=== PATIENT | male | born 1935 | race Caucasian/White ===

== ENCOUNTER 2018-05-29 07:56 | Outpatient (CLI) | payer MEDICARE, OTHER ==
--- NOTE | 2018-05-29 10:30 | ULT ---
BILATERAL RENAL ULTRASOUND: HISTORY: Polycystic kidney disease. FINDINGS: Comparison is made with the exam of 10/02/2016. The right kidney measures 10.6 cm in length and the left kidney measures 11.8 cm in length. No hydro nephrosis is seen on either side. Multiple bilateral renal cysts are seen. The largest of these in the right kidney measures 5.3 cm and is in the right mid pole. The largest cyst in the left kidney i s in the superior pole measuring 5 cm. The urinary bladder is well distended with a prevoid volume of 408 cc and a postvoid residual of 390 cc. IMPRESSION: 1. Bilateral renal cysts. 2. Large amount of postvoid residual in the urinary bladder. POS: [facility]
== END 2018-05-29 07:57 | disposition home or self-care (01) ==
LOC: BICULT 07:56
PROVIDERS: ATTEND Urology
DX: Q61.3 Polycystic kidney, unspecified (principal); N40.1 Benign prostatic hyperplasia with lower urinary tract symptoms; R33.9 Retention of urine, unspecified; N28.1 Cyst of kidney, acquired; R39.198 Other difficulties with micturition
CPT/HCPCS: 36415; 76770; 80048

== ENCOUNTER 2018-11-23 13:29 | Outpatient (CLI) | payer MEDICARE, OTHER ==
--- NOTE | 2018-11-23 14:44 | RAD ---
EXAM: Single view of the lower abdomen HISTORY: Filling of incomplete bladder emptying COMPARISON: None FINDINGS: Single view of the abdomen shows a nonspecific, nonobstructive bowel gas pattern. No suspi cious calcifications are seen. Degenerative changes and hardware seen in the lumbar spine. IMPRESSION: No significant pelvic/lower abdominal abnormality
--- NOTE | 2018-11-23 15:32 | ULT ---
Bilateral renal ultrasound CLINICAL INDICATION: Incomplete urinary bladder empty COMPARISON: 09/27/2017 FINDINGS: Right kidney: Superior pole exophytic anechoic lesions are seen largest measuring 4.4 cm which demons trates sonographic characteristics most compatible with cysts. No renal calculus or hydronephrosis is present. The right kidney measures 12 cm x 5.1 cm. Left kidney: Anechoic exophytic cystic structures are seen involving the left kidney largest in the l ateral aspect superior pole left kidney measuring 4.6 cm. No renal calculus or hydronephrosis is present.The left kidney measures 10.8 cm x 5.9 cm. Urinary bladder: Normal in appearance with urinary bladder volume of 470 mL. Patient attempted to voi d but was unable to void. The prostate gland is mildly enlarged measuring 6.4 cm in transverse dimensions. IMPRESSION: 1. Distention of the urinary bladder with prevoid urinary bladder volume calculated at 450 mL. Patien t attempted to void but was unable to void, and the post void urinary bladder volume is 470 mL. 2. Bilateral renal cysts. 3. No evidence of hydronephrosis. 4. Enlargement of prostate gland.
== END 2018-11-23 13:30 | disposition home or self-care (01) ==
LOC: RAD 13:29
PROVIDERS: ATTEND Urology
DX: N40.1 Benign prostatic hyperplasia with lower urinary tract symptoms (principal); R39.14 Feeling of incomplete bladder emptying; Q61.3 Polycystic kidney, unspecified; R35.0 Frequency of micturition; R35.1 Nocturia
CPT/HCPCS: 74018; 76770

== ENCOUNTER 2019-01-11 08:05 | Day surgery (SDC) | payer MEDICARE, OTHER ==
[2019-01-11 08:26] LABS: #Basophils 0.1 thou/uL (0.0-0.2); #Eosinphils 0.1 thou/uL (0.0-0.7); #Lymphocytes 1.7 thou/uL (1.20-3.40); #Monocytes 0.6 thou/uL (0.11-0.59); #Neutrophils 4.1 thou/uL (1.40-6.50); %Basophils 0.8 % (0.0-1.0); %Eosinophils 0.9 % (0.0-10.0); %Lymphocytes 25.8 % (21.0-51.0); %Neutrophils 63.4 % (42.0-75.0); Hemoglobin 15.1 g/dL (14.0-18.0); Mean Corpuscular HGB CONC 34.4 g/dL (32.0-36.0); Mean Corpuscular Hemoglobin 33.2 pg (27.0-31.0); Mean Corpuscular Volume 96.5 fL (78.0-98.0); Mean Platelet Volume 7.3 fL (7.4-10.4); Platelet Count 196 thou/uL (130-400); RBC Distribution Width 11.8 % (11.5-14.5); Red Blood Cell (RBC) Count 4.55 mill/uL (4.70-6.10); White Blood Cell (WBC) Count 6.5 thou/uL (4.8-10.8)
[2019-01-11 08:30] LABS: Prothrombin Time 13.2 SEC (12.0-14.7)
[2019-01-11 08:31] LABS: PTT 28.1 SEC (22.9-36.1)
[2019-01-11 10:09] VITALS: BP 140/86; TEMP 98
[2019-01-11 10:21] VITALS: BMI 26.4
--- NOTE | 2019-01-11 13:52 | CT ---
EXAM: CT Supra Pubic Catheter Plcmt PROVIDED CLINICAL HISTORY: Urinary retention. COMPARISON: None TECHNIQUE: The procedure including the risks and complications were explained to the patient, and informed conse nt was obtained. Patient was placed on the CT scan table in the supine position. Limited noncontrasted CT scan was obtained through the pelvis with grid localizer in place. An area overlying the distended urinary bladder was marked, and the area was meticulously prepped and draped in usual sterile fashion. The skin and subcutaneous tissues were infiltrated with buffered 1% lidocaine for local anesthesia. A small skin incision was made. A 14 [place] suprapubic catheter with inner stiff cannula and trocar were advanced into the urinary bladder. The stylette and trocar were removed and the catheter was adv anced. There was a return of clear urine. The distal balloon was filled with 10 mL of sterile water. The catheter was placed to gravity drainage. The suprapubic catheter was sutured in place utilizing 2-0 Ethilon suture material. A dry sterile lizandro ssing was placed. The patient tolerated the procedure well and without immediate complication. The patient was transpor kaur to radiology nurses holding area for further monitoring prior to discharge. IMPRESSION: 1. Technically successful CT-guided suprapubic catheter placement. 2. Enlarged heterogeneous prostate gland with distention of the urinary bladder.
== END 2019-01-11 12:30 | disposition home or self-care (01) ==
LOC: CT 08:05
PROVIDERS: ATTEND Urology
DX: N40.1 Benign prostatic hyperplasia with lower urinary tract symptoms (principal); R33.8 Other retention of urine; R39.14 Feeling of incomplete bladder emptying; N28.9 Disorder of kidney and ureter, unspecified; I10 Essential (primary) hypertension; I25.10 Atherosclerotic heart disease of native coronary artery without angina pectoris; E11.9 Type 2 diabetes mellitus without complications; E78.5 Hyperlipidemia, unspecified; Q61.2 Polycystic kidney, adult type; Z79.82 Long term (current) use of aspirin; Z79.899 Other long term (current) drug therapy; Z88.8 Allergy status to other drugs, medicaments and biological substances; Z91.040 Latex allergy status; Z95.1 Presence of aortocoronary bypass graft
CPT/HCPCS: 51102; 77002; 85025; 85610; 85730; C2627; 36415

== ENCOUNTER 2019-12-14 09:48 | Outpatient (CLI) | payer MEDICARE, OTHER ==
--- NOTE | 2019-12-14 10:38 | RAD ---
KUB: Date: 12/14/2019 HISTORY: Polycystic kidney. FINDINGS: The bowel gas pattern appears nonobstructive. No radiopaque calculi seen. Postop cholecystectomy cardoso ges and postop changes of the spine are noted. A suprapubic catheter appears to be in place. IMPRESSION: No acute findings. POS: [facility]
--- NOTE | 2019-12-14 11:26 | ULT ---
US Renal Bilateral STANDARD History: Polycystic kidneys. Incomplete emptying of urinary bladder. Comparison: Renal ultrasound October 2018 Findings: Real-time grayscale and color evaluation of the kidneys and urinary bladder was performed. Right kidney measures 10.4 x 5.8 x 4.7 cm the left kidney measures 10.3 x 7.4 x 5.3 cm. The urinary b ladder is decompressed with suprapubic catheter. There are 3 cysts superior pole right kidney, largest measuring up to 5.5 cm. Left kidney also has fu ll of 3 exophytic cysts, largest measuring up to 5.5 cm. No renal mass or hydronephrosis. Impression: 1. Large bilateral renal cysts without hydronephrosis. 2. Decompressed urinary bladder with suprapubic catheter.
== END 2019-12-14 09:49 | disposition home or self-care (01) ==
LOC: BICULT 09:48
PROVIDERS: ATTEND Urology
DX: N40.1 Benign prostatic hyperplasia with lower urinary tract symptoms (principal); R39.14 Feeling of incomplete bladder emptying; Q61.3 Polycystic kidney, unspecified
CPT/HCPCS: 74018; 76770

== ENCOUNTER 2021-01-24 15:20 | Outpatient (CLI) | payer MEDICARE, OTHER | END 2021-01-24 15:21 | disposition home or self-care (01) | LOC: BICULT 15:20 | PROVIDERS: ATTEND Urology | DX: Q61.3 Polycystic kidney, unspecified (principal); N40.1 Benign prostatic hyperplasia with lower urinary tract symptoms; R39.14 Feeling of incomplete bladder emptying; E11.9 Type 2 diabetes mellitus without complications; N28.1 Cyst of kidney, acquired | CPT/HCPCS: 76770 ==

== ENCOUNTER 2021-03-19 14:57 | Inpatient (IN) | payer MEDICARE, OTHER ==
[~2021-03-19 14:57] MED LIST: Iopamidol 370 76% 100 ML VIAL ONE; Iopamidol 370 76% 50 ML VIAL FS ONE
[2021-03-19] MEDS ORDERED: Heparin 10,000 UNITS/ 10 ML VIAL ONE (15:10)
[2021-03-19] MEDS ORDERED: EPINEPHrine 1 MG/10 ML Abboject SYRINGE ONE (15:10)
[2021-03-19] MEDS ORDERED: Rocuronium Bromide 10 MG/ML (10ML VIAL) ONE (15:10)
[2021-03-19] MEDS ORDERED: Midazolam HCl 2 mg/2 ml Vial ONE (15:10)
[2021-03-19] MEDS ORDERED: methylPREDNISolone Sod Succ/PF 125 MG/2 ML VIAL ONE (15:11)
[2021-03-19] MEDS ORDERED: Famotidine/PF 20 mg/2ml Vial ONE (15:11)
[2021-03-19] MEDS ORDERED: diphenhydrAMINE 50 MG/ML VIAL ONE (15:11)
[2021-03-19] MEDS ORDERED: Midazolam HCl 5 mg/ml Vial ONE (15:30)
[2021-03-19] MEDS ORDERED: Propofol 1,000 MG/100 ML VIAL IV ONE (18:12)
[2021-03-19] MEDS ORDERED: TICAGRELOR 90 MG TABLET PO SCH (19:00)
[2021-03-19] MEDS ORDERED: Aggrastat 12.5 MG/250 ML 250 ML IVPB SCH (19:00)
[2021-03-19] MEDS ORDERED: Propofol BOLUS 1,000 MG/100 ML VIAL IV PRN (19:30)
[2021-03-19] MEDS ORDERED: Morphine 4 MG/ML VIAL SLOW IVP PRN (19:30)
[2021-03-19] MEDS ORDERED: fentaNYL Citrate/PF 2,000 MCG in Sodium Chloride 0.9% 60 ML IV SCH (19:30)
[2021-03-19] MEDS ORDERED: Propofol 1,000 MG/100 ML VIAL IV PRN (19:30)
[2021-03-19] MEDS ORDERED: Fentanyl BOLUS 250 ML IVPB PRN (19:30)
[2021-03-19] MEDS ORDERED: DISCONTINUE PREVIOUS NARCOTIC PAIN MEDICATIONS AND BENZODIAZEPINES FS SCH (19:30)
[2021-03-19] MEDS ORDERED: Morphine 2 MG/ML VIAL SLOW IVP PRN (19:30)
[2021-03-19] MEDS ORDERED: Lorazepam 2 MG/ML VIAL SLOW IVP PRN (19:30)
[2021-03-19 19:58] LABS: Actual Bicarbonate (HCO3a) 16.6 mEq/L (22-28); Base Excess (BEa) -7.9 mEq/L (-2.0 to +3.0); CO2 Tension 31.1 mmHg (35.0-45.0); Calcium, Ionized (arterial) 1.22 mmol/L (1.12-1.30); Carboxyhemoglobin (COHb) 0.4 gm% (0.0-3.0); Hemoglobin (Hb) 13.7 g/dL (14.0-18.0); O2 Tension (PaO2), arterial 108.6 mmHg (> 60.0); Potassium - ABG Lab 4.47 mmol/L (3.70-5.30); pH, Arterial 7.34 (7.35-7.45)
[2021-03-19 19:59] LABS: Puncture Site Arterial Line
[2021-03-19 20:00] LABS: ALV-art Gradient 137.725 mmHg (0-20)
[2021-03-19] MEDS: Heparin 25,000 units/D5W 500 ML IV SCH (21:06)
[2021-03-19] MEDS: Sodium Chloride 0.9% 1,000 ML IV SCH (21:06)
[2021-03-19 22:03] LABS: #Lymphocytes 0.5 thou/uL (1.20-3.40); #Monocytes 0.3 thou/uL (0.11-0.59); #Neutrophils 9.4 thou/uL (1.40-6.50); %Basophils 0.1 % (0.0-1.0); %Eosinophils 0.1 % (0.0-10.0); %Monocytes 3.2 % (0.0-10.0); %Neutrophils 91.5 % (42.0-75.0); Mean Corpuscular HGB CONC 34.5 g/dL (32.0-36.0); Mean Corpuscular Hemoglobin 33.7 pg (27.0-31.0); Mean Corpuscular Volume 97.6 fL (78.0-98.0); Mean Platelet Volume 8.2 fL (7.4-10.4); Platelet Count 156 thou/uL (130-400); RBC Distribution Width 11.8 % (11.5-14.5); Red Blood Cell (RBC) Count 3.86 mill/uL (4.70-6.10); White Blood Cell (WBC) Count 10.3 thou/uL (4.8-10.8)
[2021-03-19 22:22] LABS: ALT (SGPT) 119 U/L (8-55); AST (SGOT) 201 U/L (5-34); Albumin 3.6 g/dL (3.4-4.8); Alkaline Phosphatase 112 U/L (40-110); Anion Gap 16 mmol/L (10-20); BUN (Urea Nitrogen) 17 mg/dL (8.4-25.7); Bilirubin, Total 0.8 mg/dL (0.2-1.2); Calc. Creatinine Clearance 65 mL/min (70-130); Calcium 9.3 mg/dL (7.8-10.44); Carbon Dioxide 17 mmol/L (23-31); Chloride 107 mmol/L (98-107); Globulin 2.4 g/dL (2.4-3.5); Glucose 215 mg/dL (83-110); Potassium 4.6 mmol/L (3.5-5.1); Sodium 135 mmol/L (136-145)
[2021-03-19 22:34] LABS: PTT Greater than 250.0 sec (22.9-36.1)
[2021-03-19 23:00] LABS: SARS-CoV-2 NAA Rapid Test Not Detected (NotDetected)
[2021-03-20] MEDS: Heparin 25,000 units/D5W 500 ML IV SCH (02:12)
[2021-03-20] MEDS: Sodium Chloride 0.9% 1,000 ML IV SCH ×2 (03:28→20:50)
[2021-03-20 04:20] LABS: #Lymphocytes 0.8 thou/uL (1.20-3.40); #Monocytes 0.9 thou/uL (0.11-0.59); #Neutrophils 9.6 thou/uL (1.40-6.50); %Eosinophils 0.1 % (0.0-10.0); %Lymphocytes 6.9 % (21.0-51.0); %Monocytes 7.8 % (0.0-10.0); %Neutrophils 85.3 % (42.0-75.0); Hemoglobin 12.1 g/dL (14.0-18.0); Mean Corpuscular HGB CONC 34.9 g/dL (32.0-36.0); Mean Corpuscular Hemoglobin 34.3 pg (27.0-31.0); Mean Corpuscular Volume 98.3 fL (78.0-98.0); Mean Platelet Volume 8.2 fL (7.4-10.4); Platelet Count 140 thou/uL (130-400); Red Blood Cell (RBC) Count 3.53 mill/uL (4.70-6.10); White Blood Cell (WBC) Count 11.2 thou/uL (4.8-10.8)
[2021-03-20 04:54] LABS: Albumin 3.6 g/dL (3.4-4.8)
[2021-03-20 04:56] LABS: Calcium 8.8 mg/dL (7.8-10.44); Chloride 107 mmol/L (98-107); Potassium 4.5 mmol/L (3.5-5.1); Sodium 134 mmol/L (136-145)
[2021-03-20 04:57] LABS: Globulin 2.2 g/dL (2.4-3.5); Glucose 195 mg/dL (83-110); Protein, Total 5.8 g/dL (5.8-8.1)
[2021-03-20 04:59] LABS: Anion Gap 15 mmol/L (10-20); Bilirubin, Total 0.6 mg/dL (0.2-1.2); Carbon Dioxide 17 mmol/L (23-31)
[2021-03-20 05:00] LABS: Alkaline Phosphatase 104 U/L (40-110)
[2021-03-20 05:01] LABS: BUN (Urea Nitrogen) 19 mg/dL (8.4-25.7); Calc. Creatinine Clearance 63 mL/min (70-130)
[2021-03-20 05:02] LABS: AST (SGOT) 262 U/L (5-34)
[2021-03-20 05:03] LABS: ALT (SGPT) 116 U/L (8-55)
[2021-03-20 07:50] LABS: Actual Bicarbonate (HCO3a) 19.4 mEq/L (22-28); Base Excess (BEa) -3.6 mEq/L (-2.0 to +3.0); CO2 Tension 28.9 mmHg (35.0-45.0); Carboxyhemoglobin (COHb) 0.4 gm% (0.0-3.0); Hemoglobin (Hb) 12.2 g/dL (14.0-18.0); O2 Tension (PaO2), arterial 165.9 mmHg (> 60.0); Potassium - ABG Lab 4.39 mmol/L (3.70-5.30); pH, Arterial 7.44 (7.35-7.45)
[2021-03-20 08:10] LABS: ALV-art Gradient 83.175 mmHg (0-20); Puncture Site Arterial Line
[2021-03-20 08:45] LABS: PTT 132.3 sec (22.9-36.1)
[2021-03-20] MEDS ORDERED: FLU VACC QS2021-22(65YR UP)/PF 240 MCG/0.7 ML SYRINGE IM ONE (09:00)
[2021-03-20] MEDS: TICAGRELOR 90 MG TABLET PO SCH ×2 (09:00→20:49)
[2021-03-20] MEDS: Aspirin Chewable 81 MG TAB PO SCH ×2 (09:00→10:08)
[2021-03-20] MEDS ORDERED: Trospium 20 MG TAB PER TUBE SCH (09:45)
[2021-03-20] MEDS: Trospium 20 MG TAB PER TUBE SCH ×2 (10:13→20:50)
[2021-03-20 10:24] LABS: Troponin I 124.121 ng/mL (< 0.028)
[2021-03-20] MEDS ORDERED: DC Sedation Protocol FS ONE (13:45)
[2021-03-20] MEDS: Heparin 10,000 UNITS/ 10 ML VIAL SLOW IVP SCH (19:58)
[2021-03-20] MEDS: Atorvastatin Calcium 40 MG TAB PER TUBE SCH (20:50)
[2021-03-21] MEDS: Trospium 20 MG TAB PER TUBE SCH ×2 (09:58→20:05)
[2021-03-21] MEDS: Heparin 25,000 units/D5W 500 ML IV SCH (09:59)
[2021-03-21] MEDS: TICAGRELOR 90 MG TABLET PO SCH ×2 (09:59→20:05)
[2021-03-21] MEDS: Sodium Chloride 0.9% 1,000 ML IV SCH ×2 (10:18→17:24)
[2021-03-21 10:44] LABS: INR-International Normal Ratio 1.2
[2021-03-21 10:46] LABS: PTT 83.9 sec (22.9-36.1)
[2021-03-21] MEDS ORDERED: Morphine 4 MG/ML VIAL ONE (16:24)
[2021-03-21] MEDS ORDERED: Morphine 4 MG/ML VIAL SLOW IVP SCH (17:00)
[2021-03-21] MEDS: Atorvastatin Calcium 40 MG TAB PER TUBE SCH (20:05)
[2021-03-21] MEDS ORDERED: Zolpidem Tartrate 5 MG TAB PO PRN (22:23)
[2021-03-22 04:14] LABS: Anion Gap 15 mmol/L (10-20); BUN (Urea Nitrogen) 25 mg/dL (8.4-25.7); Calc. Creatinine Clearance 68 mL/min (70-130); Calcium 8.5 mg/dL (7.8-10.44); Carbon Dioxide 18 mmol/L (23-31); Chloride 108 mmol/L (98-107); Glucose 193 mg/dL (83-110); Mean Corpuscular HGB CONC 34.7 g/dL (32.0-36.0); Mean Corpuscular Hemoglobin 34.3 pg (27.0-31.0); Mean Corpuscular Volume 98.8 fL (78.0-98.0); Mean Platelet Volume 9.1 fL (7.4-10.4); Platelet Count 127 thou/uL (130-400); RBC Distribution Width 11.9 % (11.5-14.5); Sodium 137 mmol/L (136-145); White Blood Cell (WBC) Count 12.9 thou/uL (4.8-10.8)
[2021-03-22] MEDS: Heparin 10,000 UNITS/ 10 ML VIAL SLOW IVP SCH (06:12)
[2021-03-22] MEDS ORDERED: Ondansetron PF 4 MG/2 ML Vial IVP PRN (08:14)
[2021-03-22] MEDS ORDERED: Dextrose 50% Abboject 50 ML SYRINGE IVP PRN (08:15)
[2021-03-22] MEDS ORDERED: Ondansetron PF 4 MG/2 ML Vial IVP SCH (08:15)
[2021-03-22] MEDS ORDERED: Dextrose 5% in Water 1,000 ML IV PRN (08:15)
[2021-03-22] MEDS ORDERED: Alogliptin 6.25 MG TAB PO SCH (09:00)
[2021-03-22] MEDS: Trospium 20 MG TAB PER TUBE SCH ×2 (09:26→20:37)
[2021-03-22] MEDS: TICAGRELOR 90 MG TABLET PO SCH ×2 (09:28→20:36)
[2021-03-22] MEDS: Aspirin Chewable 81 MG TAB PO SCH (09:29)
[2021-03-22] MEDS: Milk Of Magnesia 30 ML UDCUP PO SCH (09:29)
[2021-03-22] MEDS: Docusate 100 MG CAP PO SCH ×2 (09:31→20:37)
[2021-03-22] MEDS: Enalaprilat Dihydrate 1.25 MG/ML VIAL SLOW IVP PRN (09:42)
[2021-03-22] MEDS: Sodium Chloride 0.9% 1,000 ML IV SCH (09:56)
[2021-03-22] MEDS: Insulin Regular 300 UNITS/3 ML VIAL SC PRN ×3 (11:14→20:36)
[2021-03-22] MEDS: Heparin 25,000 units/D5W 500 ML IV SCH (13:05)
[2021-03-22] MEDS ORDERED: Amiodarone 450 MG in Dextrose 5% in Water 250 ML IVPB SCH (17:15)
[2021-03-22] MEDS ORDERED: Cepastat Lozenges 1 LOZ PO PRN (17:56)
[2021-03-22] MEDS: Amiodarone 450 MG in Dextrose 5% in Water 250 ML IVPB SCH (18:13)
[2021-03-22] MEDS: Enoxaparin Sodium 80 MG/0.8 ML SYRINGE SC SCH (20:35)
[2021-03-22] MEDS: Atorvastatin Calcium 40 MG TAB PER TUBE SCH (20:37)
[2021-03-23] MEDS ORDERED: Morphine 4 MG/ML VIAL SLOW IVP SCH (06:30)
[2021-03-23 09:32] LABS: Hemoglobin 11.2 g/dL (14.0-18.0); Mean Corpuscular HGB CONC 32.3 g/dL (32.0-36.0); Mean Platelet Volume 9.6 fL (7.4-10.4); Platelet Count 134 thou/uL (130-400); RBC Distribution Width 12.1 % (11.5-14.5); Red Blood Cell (RBC) Count 3.39 mill/uL (4.70-6.10); White Blood Cell (WBC) Count 15.4 thou/uL (4.8-10.8)
[2021-03-23] MEDS: Furosemide 20 MG TAB PO SCH (09:53)
[2021-03-23] MEDS: Docusate 100 MG CAP PO SCH ×2 (09:53→21:03)
[2021-03-23] MEDS: Alogliptin 25 MG TAB PO SCH (09:53)
[2021-03-23] MEDS: Aspirin Chewable 81 MG TAB PO SCH (09:53)
[2021-03-23] MEDS: Milk Of Magnesia 30 ML UDCUP PO SCH (09:54)
[2021-03-23] MEDS: TICAGRELOR 90 MG TABLET PO SCH ×2 (09:54→21:03)
[2021-03-23] MEDS: Trospium 20 MG TAB PER TUBE SCH ×2 (09:54→21:03)
[2021-03-23 10:04] LABS: Band 27 % (5-11); Lymphocytes 2 % (21-51); MDiff Complete? YES; Metamyelocyte 1 % (0-0); Monocytes 6 % (0-10); Neutrophil 64 % (42-75); RBC Morphology Normal
[2021-03-23 10:14] LABS: Anion Gap 24 mmol/L (10-20); BUN (Urea Nitrogen) 42 mg/dL (8.4-25.7); Calc. Creatinine Clearance 0 mL/min (70-130); Calcium 8.8 mg/dL (7.8-10.44); Carbon Dioxide 12 mmol/L (23-31); Chloride 106 mmol/L (98-107); Glucose 135 mg/dL (83-110); Potassium 5.3 mmol/L (3.5-5.1); Sodium 137 mmol/L (136-145)
[2021-03-23] MEDS ORDERED: Propofol 1,000 MG/100 ML VIAL IV ONE ×2 (11:46→17:36)
[2021-03-23] MEDS: Cefepime 2 GM in Sodium Chloride 0.9% 100 ML IVPB SCH (13:34)
[2021-03-23] MEDS: Enoxaparin Sodium 80 MG/0.8 ML SYRINGE SC SCH ×2 (16:05→21:03)
[2021-03-23] MEDS: Amiodarone 450 MG in Dextrose 5% in Water 250 ML IVPB SCH (17:02)
[2021-03-23] MEDS ORDERED: Midazolam HCl 2 mg/2 ml Vial ONE (17:32)
[2021-03-23] MEDS ORDERED: Propofol 1,000 MG/100 ML VIAL IV PRN (19:15)
[2021-03-23] MEDS ORDERED: Morphine 2 MG/ML VIAL SLOW IVP PRN (19:15)
[2021-03-23] MEDS ORDERED: Propofol BOLUS 1,000 MG/100 ML VIAL IV PRN (19:15)
[2021-03-23] MEDS ORDERED: Lorazepam 2 MG/ML VIAL SLOW IVP PRN (19:15)
[2021-03-23] MEDS ORDERED: Fentanyl BOLUS 250 ML IVPB PRN (19:15)
[2021-03-23] MEDS ORDERED: DISCONTINUE PREVIOUS NARCOTIC PAIN MEDICATIONS AND BENZODIAZEPINES FS SCH (19:15)
[2021-03-23] MEDS ORDERED: Fentanyl CADD 100 ML ONE (19:32)
[2021-03-23] MEDS: Fentanyl CADD 100 ML IV SCH (19:42)
[2021-03-23 20:11] LABS: Actual Bicarbonate (HCO3a) 9.4 mEq/L (22-28); Base Excess (BEa) -13.4 mEq/L (-2.0 to +3.0); Calcium, Ionized (arterial) 1.13 mmol/L (1.12-1.30); Carboxyhemoglobin (COHb) 0.2 gm% (0.0-3.0); Hemoglobin (Hb) 10.5 g/dL (14.0-18.0); Potassium - ABG Lab 5.26 mmol/L (3.70-5.30); pH, Arterial 7.39 (7.35-7.45)
[2021-03-23] MEDS: Atorvastatin Calcium 40 MG TAB PER TUBE SCH (21:03)
[2021-03-23] MEDS: Insulin Regular 300 UNITS/3 ML VIAL SC PRN (23:03)
[2021-03-24 00:03] LABS: Puncture Site RRA
[2021-03-24] MEDS: Cefepime 2 GM in Sodium Chloride 0.9% 100 ML IVPB SCH ×2 (00:36→12:53)
[2021-03-24] MEDS: Insulin Regular 300 UNITS/3 ML VIAL SC PRN ×3 (05:24→22:24)
[2021-03-24] MEDS: Amiodarone 450 MG in Dextrose 5% in Water 250 ML IVPB SCH ×2 (08:28→22:24)
[2021-03-24] MEDS ORDERED: Dextrose 5% in Water 1,000 ML IV PRN (08:30)
[2021-03-24] MEDS ORDERED: Dextrose 50% Abboject 50 ML SYRINGE IVP PRN (08:30)
[2021-03-24 09:25] LABS: Actual Bicarbonate (HCO3a) 17.1 mEq/L (22-28); Base Excess (BEa) -3.6 mEq/L (-2.0 to +3.0); Calcium, Ionized (arterial) 1.08 mmol/L (1.12-1.30); Carboxyhemoglobin (COHb) 0.3 gm% (0.0-3.0); Hemoglobin (Hb) 9.9 g/dL (14.0-18.0); O2 Tension (PaO2), arterial 121.4 mmHg (> 60.0); Potassium - ABG Lab 4.08 mmol/L (3.70-5.30)
[2021-03-24 09:27] LABS: CO2 Tension 19.5 mmHg (35.0-45.0); Puncture Site LRA; pH, Arterial 7.56 (7.35-7.45)
[2021-03-24 09:28] LABS: ALV-art Gradient 103.775 mmHg (0-20)
[2021-03-24] MEDS: Sodium Chloride 0.9% 1,000 ML IV SCH ×2 (09:28→20:54)
[2021-03-24] MEDS: Furosemide 20 MG TAB PO SCH (09:29)
[2021-03-24] MEDS: Trospium 20 MG TAB PER TUBE SCH ×2 (09:29→20:53)
[2021-03-24] MEDS: TICAGRELOR 90 MG TABLET PO SCH ×2 (09:29→20:53)
[2021-03-24] MEDS: Milk Of Magnesia 30 ML UDCUP PO SCH (09:29)
[2021-03-24] MEDS: Aspirin Chewable 81 MG TAB PO SCH (09:29)
[2021-03-24] MEDS: Docusate 100 MG CAP PO SCH ×2 (09:29→20:53)
[2021-03-24] MEDS: Enoxaparin Sodium 80 MG/0.8 ML SYRINGE SC SCH ×2 (09:29→20:53)
[2021-03-24] MEDS: Alogliptin 25 MG TAB PO SCH (12:53)
[2021-03-24] MEDS ORDERED: Fentanyl CADD 100 ML ONE (19:42)
[2021-03-24] MEDS: Fentanyl CADD 100 ML IV SCH (19:49)
[2021-03-24] MEDS: Atorvastatin Calcium 40 MG TAB PER TUBE SCH (20:53)
[2021-03-25] MEDS: Cefepime 2 GM in Sodium Chloride 0.9% 100 ML IVPB SCH ×2 (01:54→13:38)
[2021-03-25 04:36] LABS: BUN (Urea Nitrogen) 63 mg/dL (8.4-25.7); Calc. Creatinine Clearance 44 mL/min (70-130); Calcium 7.7 mg/dL (7.8-10.44); Carbon Dioxide 17 mmol/L (23-31); Chloride 111 mmol/L (98-107); Glucose 163 mg/dL (83-110); Potassium 4.3 mmol/L (3.5-5.1); Sodium 139 mmol/L (136-145)
[2021-03-25 05:37] LABS: Anion Gap 15 mmol/L (10-20)
[2021-03-25 05:49] LABS: Band 24 % (5-11); Hemoglobin 11.9 g/dL (14.0-18.0); Lymphocytes 9 % (21-51); MDiff Complete? YES; Mean Corpuscular HGB CONC 34.1 g/dL (32.0-36.0); Mean Corpuscular Hemoglobin 34.3 pg (27.0-31.0); Mean Platelet Volume 10.1 fL (7.4-10.4); Neutrophil 67 % (42-75); Platelet Count 85 thou/uL (130-400); Platelet Morphology Comment Appears Decreased; Red Blood Cell (RBC) Count 3.47 mill/uL (4.70-6.10); White Blood Cell (WBC) Count 9.5 thou/uL (4.8-10.8)
[2021-03-25] MEDS: Sodium Chloride 0.9% 1,000 ML IV SCH (08:51)
[2021-03-25] MEDS: Milk Of Magnesia 30 ML UDCUP PO SCH (09:12)
[2021-03-25] MEDS: Trospium 20 MG TAB PER TUBE SCH ×2 (09:12→20:00)
[2021-03-25] MEDS: Docusate 100 MG CAP PO SCH ×2 (09:13→20:00)
[2021-03-25] MEDS: Aspirin Chewable 81 MG TAB PO SCH (09:13)
[2021-03-25] MEDS: Amiodarone 200 MG TAB PO SCH ×3 (09:13→20:00)
[2021-03-25] MEDS: Alogliptin 25 MG TAB PO SCH (09:14)
[2021-03-25] MEDS: Enoxaparin Sodium 80 MG/0.8 ML SYRINGE SC SCH (09:15)
[2021-03-25] MEDS: Furosemide 20 MG TAB PO SCH (09:16)
[2021-03-25] MEDS: TICAGRELOR 90 MG TABLET PO SCH ×2 (09:16→20:00)
[2021-03-25] MEDS ORDERED: Fentanyl CADD 100 ML ONE (13:11)
[2021-03-25] MEDS: Fentanyl CADD 100 ML IV SCH (13:14)
[2021-03-25] MEDS: Insulin Regular 300 UNITS/3 ML VIAL SC PRN (16:34)
[2021-03-25] MEDS: Atorvastatin Calcium 40 MG TAB PER TUBE SCH (20:00)
[2021-03-26] MEDS: Cefepime 2 GM in Sodium Chloride 0.9% 100 ML IVPB SCH ×2 (01:25→11:57)
[2021-03-26 04:55] LABS: Band 23 % (5-11); Hemoglobin 10.6 g/dL (14.0-18.0); Lymphocytes 11 % (21-51); MDiff Complete? YES; Mean Corpuscular HGB CONC 33.6 g/dL (32.0-36.0); Mean Corpuscular Hemoglobin 33.8 pg (27.0-31.0); Mean Platelet Volume 9.3 fL (7.4-10.4); Monocytes 7 % (0-10); Myelocyte 1 % (0-0); Neutrophil 58 % (42-75); Nucleated RBC 3 % (0); Platelet Count 92 thou/uL (130-400); Platelet Morphology Comment Appears Decreased; RBC Distribution Width 12.1 % (11.5-14.5); Red Blood Cell (RBC) Count 3.12 mill/uL (4.70-6.10); White Blood Cell (WBC) Count 6.5 thou/uL (4.8-10.8)
[2021-03-26] MEDS: Sodium Chloride 0.9% 1,000 ML IV SCH ×4 (06:47→15:58)
[2021-03-26 07:26] LABS: Actual Bicarbonate (HCO3a) 15.6 mEq/L (22-28); Base Excess (BEa) -7.4 mEq/L (-2.0 to +3.0); Calcium, Ionized (arterial) 1.14 mmol/L (1.12-1.30); Carboxyhemoglobin (COHb) 0.3 gm% (0.0-3.0); Hemoglobin (Hb) 10.2 g/dL (14.0-18.0); O2 Tension (PaO2), arterial 64.2 mmHg (> 60.0); Potassium - ABG Lab 3.92 mmol/L (3.70-5.30); pH, Arterial 7.43 (7.35-7.45)
[2021-03-26 07:46] LABS: ALV-art Gradient 154.975 mmHg (0-20); CO2 Tension 24.3 mmHg (35.0-45.0); Puncture Site RRA
[2021-03-26] MEDS: Alogliptin 25 MG TAB PO SCH (08:17)
[2021-03-26] MEDS: Aspirin Chewable 81 MG TAB PO SCH (08:18)
[2021-03-26] MEDS: Docusate 100 MG CAP PO SCH ×2 (08:18→20:04)
[2021-03-26] MEDS: Furosemide 20 MG TAB PO SCH (08:18)
[2021-03-26] MEDS: Amiodarone 200 MG TAB PO SCH ×3 (08:18→20:04)
[2021-03-26] MEDS: Trospium 20 MG TAB PER TUBE SCH ×2 (08:19→20:04)
[2021-03-26] MEDS: Milk Of Magnesia 30 ML UDCUP PO SCH (08:19)
[2021-03-26] MEDS: TICAGRELOR 90 MG TABLET PO SCH ×2 (08:19→20:05)
[2021-03-26] MEDS: Enoxaparin Sodium 80 MG/0.8 ML SYRINGE SC SCH ×2 (09:24→20:05)
[2021-03-26] MEDS ORDERED: Fentanyl CADD 100 ML ONE (10:09)
[2021-03-26] MEDS: Fentanyl CADD 100 ML IV SCH (10:11)
[2021-03-26 11:27] LABS: Anion Gap 13 mmol/L (10-20); BUN (Urea Nitrogen) 62 mg/dL (8.4-25.7); Calc. Creatinine Clearance 52 mL/min (70-130); Calcium 7.1 mg/dL (7.8-10.44); Carbon Dioxide 16 mmol/L (23-31); Chloride 116 mmol/L (98-107); Glucose 160 mg/dL (83-110); Potassium 4.3 mmol/L (3.5-5.1); Sodium 141 mmol/L (136-145)
[2021-03-26] MEDS ORDERED: Sodium Chloride 0.9% (PF) 10 ML VIAL FS PRN (15:15)
[2021-03-26] MEDS: Pantoprazole 40 MG VIAL IVP SCH (15:26)
[2021-03-26] MEDS: cefTRIAXone\\ROCEPHIN 2 GM in Sodium Chloride 0.9% 100 ML IVPB SCH (15:27)
[2021-03-26] MEDS: Atorvastatin Calcium 40 MG TAB PER TUBE SCH (20:04)
[2021-03-26] MEDS: Insulin Regular 300 UNITS/3 ML VIAL SC PRN (21:53)
[2021-03-27] MEDS: Sodium Chloride 0.9% 1,000 ML IV SCH ×3 (02:11→15:16)
[2021-03-27] MEDS: Pantoprazole 40 MG VIAL IVP SCH ×2 (03:53→14:54)
[2021-03-27] MEDS: Insulin Regular 300 UNITS/3 ML VIAL SC PRN (03:53)
[2021-03-27 04:06] LABS: Anion Gap 11 mmol/L (10-20); BUN (Urea Nitrogen) 63 mg/dL (8.4-25.7); Calc. Creatinine Clearance 48 mL/min (70-130); Calcium 7.2 mg/dL (7.8-10.44); Carbon Dioxide 16 mmol/L (23-31); Chloride 119 mmol/L (98-107); Glucose 168 mg/dL (83-110); Potassium 4.3 mmol/L (3.5-5.1); Sodium 142 mmol/L (136-145)
[2021-03-27 04:29] LABS: Hemoglobin 10.5 g/dL (14.0-18.0); Mean Corpuscular HGB CONC 32.8 g/dL (32.0-36.0); Mean Corpuscular Hemoglobin 33.2 pg (27.0-31.0); Mean Platelet Volume 9.7 fL (7.4-10.4); Platelet Count 116 thou/uL (130-400); RBC Distribution Width 12.2 % (11.5-14.5); Red Blood Cell (RBC) Count 3.16 mill/uL (4.70-6.10); White Blood Cell (WBC) Count 10.5 thou/uL (4.8-10.8)
[2021-03-27 04:30] LABS: Band 22 % (5-11); Lymphocytes 3 % (21-51); MDiff Complete? YES; Macrocytosis SLIGHT = 6-15 cells (100X) (0-5/hpf); Monocytes 1 % (0-10); Neutrophil 74 % (42-75); Platelet Morphology Comment Appears Decreased
[2021-03-27] MEDS: Aspirin Chewable 81 MG TAB PO SCH (08:01)
[2021-03-27] MEDS: Enoxaparin Sodium 80 MG/0.8 ML SYRINGE SC SCH ×2 (08:01→20:53)
[2021-03-27] MEDS: Amiodarone 200 MG TAB PO SCH ×3 (08:02→20:15)
[2021-03-27] MEDS: Docusate 100 MG CAP PO SCH ×2 (08:02→20:53)
[2021-03-27] MEDS: Furosemide 20 MG TAB PO SCH (08:02)
[2021-03-27] MEDS: TICAGRELOR 90 MG TABLET PO SCH ×2 (08:02→20:53)
[2021-03-27] MEDS: Alogliptin 25 MG TAB PO SCH (08:02)
[2021-03-27] MEDS: Trospium 20 MG TAB PER TUBE SCH ×2 (08:03→20:15)
[2021-03-27] MEDS: Milk Of Magnesia 30 ML UDCUP PO SCH (08:03)
[2021-03-27 08:29] LABS: Actual Bicarbonate (HCO3a) 15.9 mEq/L (22-28); Base Excess (BEa) -6.9 mEq/L (-2.0 to +3.0); Calcium, Ionized (arterial) 1.13 mmol/L (1.12-1.30); Carboxyhemoglobin (COHb) 0.3 gm% (0.0-3.0); Hemoglobin (Hb) 12.3 g/dL (14.0-18.0); O2 Tension (PaO2), arterial 77.3 mmHg (> 60.0); Potassium - ABG Lab 3.96 mmol/L (3.70-5.30); pH, Arterial 7.42 (7.35-7.45)
[2021-03-27 08:34] LABS: CO2 Tension 24.9 mmHg (35.0-45.0)
[2021-03-27 08:35] LABS: ALV-art Gradient 141.125 mmHg (0-20); Puncture Site LRA
[2021-03-27 11:53] LABS: SARS-CoV-2 PCR by NAA Not Detected (NotDetected)
[2021-03-27] MEDS ORDERED: Fentanyl CADD 100 ML ONE (14:48)
[2021-03-27] MEDS: Fentanyl CADD 100 ML IV SCH (14:54)
[2021-03-27] MEDS: cefTRIAXone\\ROCEPHIN 2 GM in Sodium Chloride 0.9% 100 ML IVPB SCH (15:03)
[2021-03-27] MEDS: Atorvastatin Calcium 40 MG TAB PER TUBE SCH ×2 (20:53→20:54)
[2021-03-28] MEDS: Pantoprazole 40 MG VIAL IVP SCH ×2 (03:30→15:01)
[2021-03-28 04:50] LABS: Mean Corpuscular HGB CONC 33.5 g/dL (32.0-36.0); Mean Corpuscular Hemoglobin 34.3 pg (27.0-31.0); Mean Platelet Volume 9.4 fL (7.4-10.4); Platelet Count 140 thou/uL (130-400); RBC Distribution Width 12.4 % (11.5-14.5); Red Blood Cell (RBC) Count 3.21 mill/uL (4.70-6.10); White Blood Cell (WBC) Count 12.2 thou/uL (4.8-10.8)
[2021-03-28 05:01] LABS: Albumin 2.3 g/dL (3.4-4.8); Alkaline Phosphatase 149 U/L (40-110); Anion Gap 13 mmol/L (10-20); BUN (Urea Nitrogen) 65 mg/dL (8.4-25.7); Bilirubin, Total 1.3 mg/dL (0.2-1.2); Calc. Creatinine Clearance 46 mL/min (70-130); Calcium 7.6 mg/dL (7.8-10.44); Carbon Dioxide 18 mmol/L (23-31); Chloride 119 mmol/L (98-107); Globulin 2.2 g/dL (2.4-3.5); Glucose 198 mg/dL (83-110); Potassium 4.2 mmol/L (3.5-5.1); Protein, Total 4.5 g/dL (5.8-8.1); Sodium 146 mmol/L (136-145)
[2021-03-28 05:02] LABS: ALT (SGPT) 588 U/L (8-55); AST (SGOT) 181 U/L (5-34); Magnesium 2.4 mg/dL (1.6-2.6)
[2021-03-28 05:21] LABS: MDiff Complete? YES
[2021-03-28 05:22] LABS: Band 10 % (5-11); Eosinophils 1 % (0-10); Lymphocytes 3 % (21-51); Monocytes 7 % (0-10); Neutrophil 79 % (42-75)
[2021-03-28 05:26] LABS: Phosphorus 1.8 mg/dL (2.3-4.7)
[2021-03-28] MEDS: Sodium Chloride 0.9% 1,000 ML IV SCH ×3 (05:43→15:02)
[2021-03-28] MEDS: Insulin Regular 300 UNITS/3 ML VIAL SC PRN ×4 (05:44→20:21)
[2021-03-28 08:05] LABS: Actual Bicarbonate (HCO3a) 18.7 mEq/L (22-28); Base Excess (BEa) -4.2 mEq/L (-2.0 to +3.0); CO2 Tension 27.5 mmHg (35.0-45.0); Calcium, Ionized (arterial) 1.15 mmol/L (1.12-1.30); Carboxyhemoglobin (COHb) 0.3 gm% (0.0-3.0); Hemoglobin (Hb) 10.6 g/dL (14.0-18.0); O2 Tension (PaO2), arterial 84.9 mmHg (> 60.0); Potassium - ABG Lab 3.93 mmol/L (3.70-5.30); pH, Arterial 7.45 (7.35-7.45)
[2021-03-28 08:06] LABS: ALV-art Gradient 130.275 mmHg (0-20); Puncture Site LRA
[2021-03-28] MEDS: Amiodarone 200 MG TAB PO SCH ×3 (08:57→20:04)
[2021-03-28] MEDS: Furosemide 20 MG TAB PO SCH (08:57)
[2021-03-28] MEDS: Aspirin Chewable 81 MG TAB PO SCH (08:57)
[2021-03-28] MEDS: Trospium 20 MG TAB PER TUBE SCH ×2 (08:57→20:05)
[2021-03-28] MEDS: Docusate 100 MG CAP PO SCH ×2 (08:57→20:04)
[2021-03-28] MEDS: Enoxaparin Sodium 80 MG/0.8 ML SYRINGE SC SCH ×2 (08:58→20:04)
[2021-03-28] MEDS: Milk Of Magnesia 30 ML UDCUP PO SCH (08:58)
[2021-03-28] MEDS: TICAGRELOR 90 MG TABLET PO SCH ×2 (09:00→20:04)
[2021-03-28] MEDS: Alogliptin 25 MG TAB PO SCH (10:00)
[2021-03-28] MEDS: hydrALAZINE 20 MG/ML VIAL SLOW IVP PRN ×2 (10:28→23:11)
[2021-03-28] MEDS: Morphine 4 MG/ML VIAL SLOW IVP PRN ×3 (11:22→17:21)
[2021-03-28] MEDS: Enalaprilat Dihydrate 1.25 MG/ML VIAL SLOW IVP PRN (13:50)
[2021-03-28] MEDS: cefTRIAXone\\ROCEPHIN 2 GM in Sodium Chloride 0.9% 100 ML IVPB SCH (15:33)
[2021-03-28] MEDS ORDERED: Furosemide 40 MG/4 ML VIAL SLOW IVP SCH (17:00)
[2021-03-28] MEDS: Atorvastatin Calcium 40 MG TAB PER TUBE SCH (20:05)
[2021-03-28] MEDS: Nitroglycerin 2% Ointment 1 INCH/1 GM Packet TOP SCH (23:12)
[2021-03-29] MEDS: Insulin Regular 300 UNITS/3 ML VIAL SC PRN ×5 (00:09→22:05)
[2021-03-29] MEDS: Pantoprazole 40 MG VIAL IVP SCH (03:30)
[2021-03-29 04:12] LABS: Mean Corpuscular HGB CONC 34.5 g/dL (32.0-36.0); Mean Corpuscular Hemoglobin 34.7 pg (27.0-31.0); Mean Platelet Volume 9.8 fL (7.4-10.4); Platelet Count 169 thou/uL (130-400); RBC Distribution Width 12.6 % (11.5-14.5); Red Blood Cell (RBC) Count 3.73 mill/uL (4.70-6.10); White Blood Cell (WBC) Count 16.2 thou/uL (4.8-10.8)
[2021-03-29 04:28] LABS: ALT (SGPT) 463 U/L (8-55); AST (SGOT) 95 U/L (5-34); Albumin 2.7 g/dL (3.4-4.8); Alkaline Phosphatase 169 U/L (40-110); Anion Gap 15 mmol/L (10-20); BUN (Urea Nitrogen) 56 mg/dL (8.4-25.7); Bilirubin, Total 1.3 mg/dL (0.2-1.2); Calc. Creatinine Clearance 46 mL/min (70-130); Calcium 8.2 mg/dL (7.8-10.44); Carbon Dioxide 21 mmol/L (23-31); Chloride 116 mmol/L (98-107); Globulin 2.9 g/dL (2.4-3.5); Glucose 364 mg/dL (83-110); Phosphorus 1.3 mg/dL (2.3-4.7); Potassium 3.8 mmol/L (3.5-5.1); Protein, Total 5.6 g/dL (5.8-8.1); Sodium 148 mmol/L (136-145)
[2021-03-29 04:56] LABS: Band 10 % (5-11); Lymphocytes 6 % (21-51); MDiff Complete? YES; Monocytes 5 % (0-10); Neutrophil 79 % (42-75)
[2021-03-29] MEDS: Nitroglycerin 2% Ointment 1 INCH/1 GM Packet TOP SCH ×3 (05:33→21:48)
[2021-03-29] MEDS: Furosemide 20 MG TAB PO SCH (10:00)
[2021-03-29] MEDS: Docusate 100 MG CAP PO SCH ×2 (10:00→21:11)
[2021-03-29] MEDS: Alogliptin 25 MG TAB PO SCH (10:00)
[2021-03-29] MEDS: Enoxaparin Sodium 80 MG/0.8 ML SYRINGE SC SCH ×2 (10:00→21:11)
[2021-03-29] MEDS: TICAGRELOR 90 MG TABLET PO SCH ×2 (10:00→21:42)
[2021-03-29] MEDS: Trospium 20 MG TAB PER TUBE SCH ×2 (10:00→21:11)
[2021-03-29] MEDS: Milk Of Magnesia 30 ML UDCUP PO SCH (10:00)
[2021-03-29] MEDS: Aspirin Chewable 81 MG TAB PO SCH (10:00)
[2021-03-29] MEDS: Amiodarone 200 MG TAB PO SCH ×3 (10:00→21:12)
[2021-03-29] MEDS: Pantoprazole 40 MG GRANULES PACKET PER TUBE SCH (12:29)
[2021-03-29] MEDS: cefTRIAXone\\ROCEPHIN 2 GM in Sodium Chloride 0.9% 100 ML IVPB SCH (15:06)
[2021-03-29] MEDS: Atorvastatin Calcium 40 MG TAB PER TUBE SCH (21:11)
[2021-03-30] MEDS: Pantoprazole 40 MG GRANULES PACKET PER TUBE SCH ×2 (01:02→12:37)
[2021-03-30] MEDS ORDERED: Insulin Regular 300 UNITS/3 ML VIAL SC PRN (02:15)
[2021-03-30] MEDS ORDERED: Albumin 25% 25 GM/100 ML BOT IVPB SCH (03:00)
[2021-03-30 04:33] LABS: Band 3 % (5-11); Hemoglobin 12.7 g/dL (14.0-18.0); Hypochromia SLIGHT = 6-15 cells (100X) (0-5/hpf); Lymphocytes 9 % (21-51); MDiff Complete? YES; Mean Corpuscular Volume 99.8 fL (78.0-98.0); Mean Platelet Volume 10.1 fL (7.4-10.4); Monocytes 11 % (0-10); Neutrophil 77 % (42-75); Platelet Count 179 thou/uL (130-400); Platelet Morphology Comment Appears Adequate; RBC Distribution Width 12.6 % (11.5-14.5); Red Blood Cell (RBC) Count 3.74 mill/uL (4.70-6.10); White Blood Cell (WBC) Count 16.8 thou/uL (4.8-10.8)
[2021-03-30 04:48] LABS: ALT (SGPT) 280 U/L (8-55); AST (SGOT) 67 U/L (5-34); Alkaline Phosphatase 146 U/L (40-110); Anion Gap 16 mmol/L (10-20); BUN (Urea Nitrogen) 49 mg/dL (8.4-25.7); Bilirubin, Total 1.1 mg/dL (0.2-1.2); Calc. Creatinine Clearance 48 mL/min (70-130); Calcium 8.3 mg/dL (7.8-10.44); Carbon Dioxide 24 mmol/L (23-31); Chloride 116 mmol/L (98-107); Globulin 2.6 g/dL (2.4-3.5); Glucose 217 mg/dL (83-110); Potassium 3.8 mmol/L (3.5-5.1); Protein, Total 5.6 g/dL (5.8-8.1); Sodium 152 mmol/L (136-145)
[2021-03-30] MEDS: Nitroglycerin 2% Ointment 1 INCH/1 GM Packet TOP SCH ×3 (05:08→22:45)
[2021-03-30] MEDS ORDERED: HumaLOG 300 UNITS/3 ML VIAL SC SCH (07:30)
[2021-03-30] MEDS: Trospium 20 MG TAB PER TUBE SCH ×2 (10:04→20:49)
[2021-03-30] MEDS: hydrALAZINE 20 MG/ML VIAL SLOW IVP PRN (10:04)
[2021-03-30] MEDS: Milk Of Magnesia 30 ML UDCUP PO SCH (10:05)
[2021-03-30] MEDS: TICAGRELOR 90 MG TABLET PO SCH ×2 (10:05→20:50)
[2021-03-30] MEDS: Aspirin Chewable 81 MG TAB PO SCH (10:05)
[2021-03-30] MEDS: Enoxaparin Sodium 80 MG/0.8 ML SYRINGE SC SCH ×2 (10:05→20:48)
[2021-03-30] MEDS: Amiodarone 200 MG TAB PO SCH ×3 (10:06→20:49)
[2021-03-30] MEDS: Docusate 100 MG CAP PO SCH ×2 (10:07→20:49)
[2021-03-30] MEDS: Sodium Chloride 0.45% 1,000 ML IV SCH ×2 (10:09→17:26)
[2021-03-30] MEDS: Alogliptin 25 MG TAB PO SCH (10:39)
[2021-03-30] MEDS: Insulin Regular 300 UNITS/3 ML VIAL SC PRN (12:37)
[2021-03-30] MEDS: cefTRIAXone\\ROCEPHIN 2 GM in Sodium Chloride 0.9% 100 ML IVPB SCH (15:23)
[2021-03-30] MEDS ORDERED: Lantus 1000 UNITS/10 ML VIAL SC SCH (21:00)
[2021-03-31] MEDS: Pantoprazole 40 MG GRANULES PACKET PER TUBE SCH ×3 (00:10→23:59)
[2021-03-31 04:48] LABS: Hemoglobin 11.8 g/dL (14.0-18.0); Mean Corpuscular HGB CONC 33.1 g/dL (32.0-36.0); Mean Corpuscular Hemoglobin 33.5 pg (27.0-31.0); Mean Platelet Volume 9.8 fL (7.4-10.4); Platelet Count 176 thou/uL (130-400); RBC Distribution Width 12.8 % (11.5-14.5); Red Blood Cell (RBC) Count 3.52 mill/uL (4.70-6.10); White Blood Cell (WBC) Count 16.1 thou/uL (4.8-10.8)
[2021-03-31 05:10] LABS: Band 11 % (5-11); Eosinophils 1 % (0-10); Lymphocytes 1 % (21-51); MDiff Complete? YES; Monocytes 8 % (0-10); Myelocyte 1 % (0-0); Neutrophil 78 % (42-75); Platelet Morphology Comment Appears Adequate
[2021-03-31] MEDS: Nitroglycerin 2% Ointment 1 INCH/1 GM Packet TOP SCH ×3 (05:47→22:02)
[2021-03-31] MEDS: Insulin Regular 300 UNITS/3 ML VIAL SC PRN ×3 (05:47→17:33)
[2021-03-31] MEDS: Docusate 100 MG CAP PO SCH ×2 (08:27→22:03)
[2021-03-31] MEDS: Trospium 20 MG TAB PER TUBE SCH ×2 (08:27→22:01)
[2021-03-31] MEDS: Amiodarone 200 MG TAB PO SCH (08:27)
[2021-03-31] MEDS: Aspirin Chewable 81 MG TAB PO SCH (08:27)
[2021-03-31] MEDS: TICAGRELOR 90 MG TABLET PO SCH ×2 (08:28→22:01)
[2021-03-31] MEDS: Milk Of Magnesia 30 ML UDCUP PO SCH (08:28)
[2021-03-31] MEDS: Enoxaparin Sodium 80 MG/0.8 ML SYRINGE SC SCH ×2 (08:28→22:00)
[2021-03-31] MEDS: Alogliptin 25 MG TAB PO SCH (09:57)
[2021-03-31] MEDS ORDERED: Lantus 1000 UNITS/10 ML VIAL SC SCH ×2 (12:00→12:15)
[2021-03-31] MEDS: Azithromycin 500 MG in Sodium Chloride 0.9% 250 ML 250 ML IVPB SCH (13:15)
[2021-03-31] MEDS ORDERED: Digoxin 0.5 MG/2 ML AMP SLOW IVP SCH (14:15)
[2021-03-31] MEDS: cefTRIAXone\\ROCEPHIN 2 GM in Sodium Chloride 0.9% 100 ML IVPB SCH (15:54)
[2021-03-31] MEDS: Amiodarone 450 MG in Dextrose 5% in Water 250 ML IVPB SCH (16:32)
[2021-03-31 16:37] LABS: SARS-CoV-2 IgG Ab Non-Reactive (NonReactive)
[2021-03-31 16:40] LABS: SARS-CoV-2 IgG Index 0.05 S/CO (< 1.40)
[2021-03-31] MEDS: Atorvastatin Calcium 40 MG TAB PER TUBE SCH (21:59)
[2021-04-01] MEDS: Amiodarone 450 MG in Dextrose 5% in Water 250 ML IVPB SCH ×2 (03:03→21:10)
[2021-04-01 05:24] LABS: Band 9 % (5-11); Hemoglobin 12.2 g/dL (14.0-18.0); Lymphocytes 4 % (21-51); MDiff Complete? YES; Mean Corpuscular HGB CONC 32.1 g/dL (32.0-36.0); Mean Corpuscular Hemoglobin 32.9 pg (27.0-31.0); Mean Platelet Volume 10.4 fL (7.4-10.4); Monocytes 5 % (0-10); Neutrophil 82 % (42-75); Platelet Count 194 thou/uL (130-400); Platelet Morphology Comment Appears Adequate; White Blood Cell (WBC) Count 15.4 thou/uL (4.8-10.8)
[2021-04-01 05:39] LABS: ALT (SGPT) 131 U/L (8-55); AST (SGOT) 40 U/L (5-34); Albumin 2.8 g/dL (3.4-4.8); Alkaline Phosphatase 116 U/L (40-110); Anion Gap 13 mmol/L (10-20); BUN (Urea Nitrogen) 40 mg/dL (8.4-25.7); Bilirubin, Total 1.1 mg/dL (0.2-1.2); Calc. Creatinine Clearance 65 mL/min (70-130); Calcium 8.7 mg/dL (7.8-10.44); Carbon Dioxide 26 mmol/L (23-31); Chloride 118 mmol/L (98-107); Globulin 2.6 g/dL (2.4-3.5); Glucose 149 mg/dL (83-110); Potassium 3.6 mmol/L (3.5-5.1); Protein, Total 5.4 g/dL (5.8-8.1); Sodium 153 mmol/L (136-145)
[2021-04-01] MEDS: Nitroglycerin 2% Ointment 1 INCH/1 GM Packet TOP SCH ×3 (06:45→21:12)
[2021-04-01] MEDS: Enoxaparin Sodium 80 MG/0.8 ML SYRINGE SC SCH ×2 (10:31→21:11)
[2021-04-01] MEDS: Milk Of Magnesia 30 ML UDCUP PO SCH (10:32)
[2021-04-01] MEDS: Aspirin Chewable 81 MG TAB PO SCH (10:33)
[2021-04-01] MEDS: Trospium 20 MG TAB PER TUBE SCH ×2 (10:33→21:11)
[2021-04-01] MEDS: Docusate 100 MG CAP PO SCH ×2 (10:33→21:11)
[2021-04-01] MEDS: Digoxin 0.5 MG/2 ML AMP SLOW IVP SCH (10:33)
[2021-04-01] MEDS: TICAGRELOR 90 MG TABLET PO SCH ×2 (10:33→21:11)
[2021-04-01] MEDS: Alogliptin 25 MG TAB PO SCH (10:33)
[2021-04-01] MEDS: Lantus 1000 UNITS/10 ML VIAL SC SCH (11:10)
[2021-04-01] MEDS: Azithromycin 500 MG in Sodium Chloride 0.9% 250 ML 250 ML IVPB SCH (13:20)
[2021-04-01] MEDS: Pantoprazole 40 MG GRANULES PACKET PER TUBE SCH (13:54)
[2021-04-01] MEDS: cefTRIAXone\\ROCEPHIN 2 GM in Sodium Chloride 0.9% 100 ML IVPB SCH (14:55)
[2021-04-01] MEDS: Atorvastatin Calcium 40 MG TAB PER TUBE SCH (21:11)
[2021-04-02] MEDS: Pantoprazole 40 MG GRANULES PACKET PER TUBE SCH ×2 (02:58→14:23)
[2021-04-02 05:32] LABS: Anion Gap 11 mmol/L (10-20); BUN (Urea Nitrogen) 37 mg/dL (8.4-25.7); Calc. Creatinine Clearance 69 mL/min (70-130); Carbon Dioxide 25 mmol/L (23-31); Chloride 119 mmol/L (98-107); Glucose 192 mg/dL (83-110); Potassium 3.6 mmol/L (3.5-5.1); Sodium 151 mmol/L (136-145)
[2021-04-02 05:47] LABS: Band 4 % (5-11); Eosinophils 1 % (0-10); Hemoglobin 11.6 g/dL (14.0-18.0); Lymphocytes 8 % (21-51); MDiff Complete? YES; Macrocytosis SLIGHT = 6-15 cells (100X) (0-5/hpf); Mean Corpuscular HGB CONC 36.1 g/dL (32.0-36.0); Mean Corpuscular Hemoglobin 36.5 pg (27.0-31.0); Mean Platelet Volume 10.3 fL (7.4-10.4); Metamyelocyte 1 % (0-0); Monocytes 1 % (0-10); Myelocyte 1 % (0-0); Neutrophil 83 % (42-75); Platelet Count 172 thou/uL (130-400); Platelet Morphology Comment Appears Adequate; RBC Distribution Width 12.9 % (11.5-14.5); Reactive Lymphocytes 1 % (0-10); Red Blood Cell (RBC) Count 3.17 mill/uL (4.70-6.10); White Blood Cell (WBC) Count 13.3 thou/uL (4.8-10.8)
[2021-04-02] MEDS: Nitroglycerin 2% Ointment 1 INCH/1 GM Packet TOP SCH ×3 (06:47→21:01)
[2021-04-02] MEDS ORDERED: Ascorbic Acid 500 mg Chewable Tablet PO SCH (09:00)
[2021-04-02] MEDS ORDERED: LIDOCAINE 2% SSW PRN (09:10)
[2021-04-02] MEDS ORDERED: MAGNESIUM HYDROXIDE SSW PRN (09:10)
[2021-04-02] MEDS ORDERED: [UNRECOGNIZED DRUG - OTHER] SSW PRN (09:10)
[2021-04-02] MEDS: Aspirin Chewable 81 MG TAB PO SCH (11:00)
[2021-04-02] MEDS: Digoxin 0.5 MG/2 ML AMP SLOW IVP SCH (11:00)
[2021-04-02] MEDS: Enoxaparin Sodium 80 MG/0.8 ML SYRINGE SC SCH ×2 (11:03→21:02)
[2021-04-02] MEDS: Milk Of Magnesia 30 ML UDCUP PO SCH (11:04)
[2021-04-02] MEDS: TICAGRELOR 90 MG TABLET PO SCH ×2 (11:04→21:02)
[2021-04-02] MEDS: Trospium 20 MG TAB PER TUBE SCH ×2 (11:06→21:01)
[2021-04-02] MEDS: Alogliptin 25 MG TAB PO SCH (11:29)
[2021-04-02] MEDS: Azithromycin 500 MG in Sodium Chloride 0.9% 250 ML 250 ML IVPB SCH (11:30)
[2021-04-02] MEDS: Docusate 100 MG CAP PO SCH ×2 (13:03→21:01)
[2021-04-02] MEDS: Lantus 1000 UNITS/10 ML VIAL SC SCH (13:09)
[2021-04-02] MEDS: LIDOCAINE 2% SSW SCH ×4 (14:23→21:01)
[2021-04-02] MEDS: [UNRECOGNIZED DRUG - OTHER] SSW SCH ×4 (14:23→21:01)
[2021-04-02] MEDS: MAGNESIUM HYDROXIDE SSW SCH ×4 (14:23→21:01)
[2021-04-02] MEDS: cefTRIAXone\\ROCEPHIN 2 GM in Sodium Chloride 0.9% 100 ML IVPB SCH (16:20)
[2021-04-02] MEDS: Sacubitril 49 MG/Valsartan 51 MG TABLET PO SCH (21:02)
[2021-04-02] MEDS: Atorvastatin Calcium 40 MG TAB PER TUBE SCH (21:02)
[2021-04-03] MEDS: Pantoprazole 40 MG GRANULES PACKET PER TUBE SCH ×3 (00:06→23:39)
[2021-04-03 05:33] LABS: Band 1 % (5-11); Hemoglobin 11.4 g/dL (14.0-18.0); Hypochromia SLIGHT = 6-15 cells (100X) (0-5/hpf); Lymphocytes 10 % (21-51); MDiff Complete? YES; Macrocytosis SLIGHT = 6-15 cells (100X) (0-5/hpf); Mean Corpuscular HGB CONC 33.8 g/dL (32.0-36.0); Mean Corpuscular Hemoglobin 34.3 pg (27.0-31.0); Mean Platelet Volume 10.3 fL (7.4-10.4); Monocytes 9 % (0-10); Neutrophil 80 % (42-75); Platelet Count 199 thou/uL (130-400); Platelet Morphology Comment Appears Adequate; Red Blood Cell (RBC) Count 3.31 mill/uL (4.70-6.10); White Blood Cell (WBC) Count 12.6 thou/uL (4.8-10.8)
[2021-04-03 05:58] LABS: ALT (SGPT) 70 U/L (8-55); AST (SGOT) 30 U/L (5-34); Albumin 2.7 g/dL (3.4-4.8); Alkaline Phosphatase 98 U/L (40-110); Anion Gap 13 mmol/L (10-20); BUN (Urea Nitrogen) 30 mg/dL (8.4-25.7); Bilirubin, Total 1.3 mg/dL (0.2-1.2); Calc. Creatinine Clearance 68 mL/min (70-130); Carbon Dioxide 24 mmol/L (23-31); Chloride 120 mmol/L (98-107); Globulin 2.4 g/dL (2.4-3.5); Glucose 175 mg/dL (83-110); Potassium 3.3 mmol/L (3.5-5.1); Protein, Total 5.1 g/dL (5.8-8.1); Sodium 154 mmol/L (136-145)
[2021-04-03] MEDS: Nitroglycerin 2% Ointment 1 INCH/1 GM Packet TOP SCH ×3 (05:59→21:29)
[2021-04-03] MEDS: Docusate 100 MG CAP PO SCH ×2 (08:54→20:24)
[2021-04-03] MEDS: Alogliptin 25 MG TAB PO SCH (08:54)
[2021-04-03] MEDS: Ascorbic Acid 500 mg Chewable Tablet PER TUBE SCH (08:54)
[2021-04-03] MEDS: Aspirin Chewable 81 MG TAB PO SCH (08:54)
[2021-04-03] MEDS: Trospium 20 MG TAB PER TUBE SCH ×2 (08:55→20:24)
[2021-04-03] MEDS: TICAGRELOR 90 MG TABLET PO SCH (08:55)
[2021-04-03] MEDS: Milk Of Magnesia 30 ML UDCUP PO SCH (08:55)
[2021-04-03] MEDS: Lantus 1000 UNITS/10 ML VIAL SC SCH (08:55)
[2021-04-03] MEDS: Sacubitril 49 MG/Valsartan 51 MG TABLET PO SCH ×2 (08:55→20:24)
[2021-04-03] MEDS: Multivits W-Minerals Liquid 15 ML LIQ PER TUBE SCH (08:55)
[2021-04-03] MEDS: LIDOCAINE 2% SSW SCH ×4 (09:20→20:25)
[2021-04-03] MEDS: Digoxin 0.5 MG/2 ML AMP SLOW IVP SCH (09:20)
[2021-04-03] MEDS: [UNRECOGNIZED DRUG - OTHER] SSW SCH ×4 (09:20→20:25)
[2021-04-03] MEDS: MAGNESIUM HYDROXIDE SSW SCH ×4 (09:20→20:25)
[2021-04-03] MEDS: Azithromycin 500 MG in Sodium Chloride 0.9% 250 ML 250 ML IVPB SCH (11:51)
[2021-04-03] MEDS ORDERED: Fentanyl 100 MCG/2 ML VIAL SLOW IVP PRN (15:40)
[2021-04-03] MEDS: Amiodarone 200 MG TAB PO SCH ×2 (17:26→20:24)
[2021-04-03] MEDS: Atorvastatin Calcium 40 MG TAB PER TUBE SCH (20:24)
[2021-04-03 21:58] LABS: SARS-CoV-2 PCR by NAA Not Detected (NotDetected)
[2021-04-04 04:53] LABS: Band 3 % (5-11); Hemoglobin 11.2 g/dL (14.0-18.0); Hypochromia SLIGHT = 6-15 cells (100X) (0-5/hpf); Lymphocytes 6 % (21-51); MDiff Complete? YES; Macrocytosis SLIGHT = 6-15 cells (100X) (0-5/hpf); Mean Corpuscular HGB CONC 31.7 g/dL (32.0-36.0); Mean Corpuscular Hemoglobin 32.8 pg (27.0-31.0); Mean Platelet Volume 10.2 fL (7.4-10.4); Monocytes 4 % (0-10); Neutrophil 86 % (42-75); Platelet Count 214 thou/uL (130-400); Platelet Morphology Comment Appears Adequate; RBC Distribution Width 13.4 % (11.5-14.5); Reactive Lymphocytes 1 % (0-10); Red Blood Cell (RBC) Count 3.42 mill/uL (4.70-6.10); White Blood Cell (WBC) Count 13.4 thou/uL (4.8-10.8)
[2021-04-04 05:04] LABS: Anion Gap 11 mmol/L (10-20); BUN (Urea Nitrogen) 30 mg/dL (8.4-25.7); Calc. Creatinine Clearance 70 mL/min (70-130); Calcium 8.3 mg/dL (7.8-10.44); Carbon Dioxide 25 mmol/L (23-31); Chloride 121 mmol/L (98-107); Glucose 220 mg/dL (83-110); Potassium 3.1 mmol/L (3.5-5.1); Sodium 154 mmol/L (136-145)
[2021-04-04] MEDS: Nitroglycerin 2% Ointment 1 INCH/1 GM Packet TOP SCH ×3 (05:36→22:29)
[2021-04-04] MEDS: Trospium 20 MG TAB PER TUBE SCH ×2 (09:54→22:29)
[2021-04-04] MEDS: Clopidogrel Bisulfate 75 MG TAB PO SCH (09:54)
[2021-04-04] MEDS: Sacubitril 49 MG/Valsartan 51 MG TABLET PO SCH ×2 (09:54→22:30)
[2021-04-04] MEDS: Ascorbic Acid 500 mg Chewable Tablet PER TUBE SCH (09:54)
[2021-04-04] MEDS: Docusate 100 MG CAP PO SCH ×2 (09:54→22:29)
[2021-04-04] MEDS: Aspirin Chewable 81 MG TAB PO SCH (09:54)
[2021-04-04] MEDS: Amiodarone 200 MG TAB PO SCH ×3 (09:54→22:29)
[2021-04-04] MEDS: Digoxin 0.5 MG/2 ML AMP SLOW IVP SCH (09:54)
[2021-04-04] MEDS: Alogliptin 25 MG TAB PO SCH (09:57)
[2021-04-04] MEDS: Lantus 1000 UNITS/10 ML VIAL SC SCH (09:57)
[2021-04-04] MEDS: Multivits W-Minerals Liquid 15 ML LIQ PER TUBE SCH (09:57)
[2021-04-04] MEDS: Milk Of Magnesia 30 ML UDCUP PO SCH (09:58)
[2021-04-04] MEDS: [UNRECOGNIZED DRUG - OTHER] SSW SCH ×4 (09:59→22:30)
[2021-04-04] MEDS: MAGNESIUM HYDROXIDE SSW SCH ×4 (09:59→22:30)
[2021-04-04] MEDS: LIDOCAINE 2% SSW SCH ×4 (09:59→22:30)
[2021-04-04] MEDS: Pantoprazole 40 MG GRANULES PACKET PER TUBE SCH (13:45)
[2021-04-04] MEDS: Azithromycin 500 MG in Sodium Chloride 0.9% 250 ML 250 ML IVPB SCH (13:45)
[2021-04-04] MEDS: Insulin Regular 300 UNITS/3 ML VIAL SC PRN (18:39)
[2021-04-04] MEDS: Atorvastatin Calcium 40 MG TAB PER TUBE SCH (22:29)
[2021-04-05] MEDS: Pantoprazole 40 MG GRANULES PACKET PER TUBE SCH ×2 (01:10→11:43)
[2021-04-05] MEDS: Nitroglycerin 2% Ointment 1 INCH/1 GM Packet TOP SCH ×3 (06:14→22:03)
[2021-04-05] MEDS: Insulin Regular 300 UNITS/3 ML VIAL SC PRN ×2 (06:30→11:53)
[2021-04-05 07:31] LABS: Hemoglobin 10.9 g/dL (14.0-18.0); Mean Corpuscular HGB CONC 33.3 g/dL (32.0-36.0); Mean Corpuscular Hemoglobin 33.9 pg (27.0-31.0); Mean Platelet Volume 10.5 fL (7.4-10.4); Platelet Count 189 thou/uL (130-400); RBC Distribution Width 13.3 % (11.5-14.5); Red Blood Cell (RBC) Count 3.21 mill/uL (4.70-6.10); White Blood Cell (WBC) Count 15.4 thou/uL (4.8-10.8)
[2021-04-05 07:38] LABS: Anion Gap 13 mmol/L (10-20); BUN (Urea Nitrogen) 26 mg/dL (8.4-25.7); Calc. Creatinine Clearance 79 mL/min (70-130); Calcium 7.5 mg/dL (7.8-10.44); Carbon Dioxide 21 mmol/L (23-31); Chloride 114 mmol/L (98-107); Glucose 237 mg/dL (83-110); Potassium 3.4 mmol/L (3.5-5.1); Sodium 145 mmol/L (136-145)
[2021-04-05 07:54] LABS: Band 9 % (5-11); Lymphocytes 7 % (21-51); MDiff Complete? YES; Monocytes 5 % (0-10); Neutrophil 78 % (42-75); Platelet Morphology Comment Appears Adequate; Polychromasia SLIGHT = 2-3 cells (100X) (0-2/hpf)
[2021-04-05] MEDS: Docusate 100 MG CAP PO SCH ×2 (09:08→22:02)
[2021-04-05] MEDS: Sacubitril 49 MG/Valsartan 51 MG TABLET PO SCH ×2 (09:08→22:03)
[2021-04-05] MEDS: Aspirin Chewable 81 MG TAB PO SCH (09:08)
[2021-04-05] MEDS: Lantus 1000 UNITS/10 ML VIAL SC SCH (09:08)
[2021-04-05] MEDS: Digoxin 0.5 MG/2 ML AMP SLOW IVP SCH (09:09)
[2021-04-05] MEDS: Potassium Bicarbonate/Cit Ac 20 MEQ TAB PER TUBE SCH (09:09)
[2021-04-05] MEDS: Amiodarone 200 MG TAB PO SCH ×3 (09:09→22:03)
[2021-04-05] MEDS: Spironolactone 25 MG TAB PER TUBE SCH ×2 (09:09→17:45)
[2021-04-05] MEDS: Clopidogrel Bisulfate 75 MG TAB PO SCH (09:09)
[2021-04-05] MEDS: Trospium 20 MG TAB PER TUBE SCH ×2 (09:09→22:02)
[2021-04-05] MEDS: Alogliptin 25 MG TAB PO SCH (09:09)
[2021-04-05] MEDS: Ascorbic Acid 500 mg Chewable Tablet PER TUBE SCH (09:09)
[2021-04-05] MEDS: Multivits W-Minerals Liquid 15 ML LIQ PER TUBE SCH (09:10)
[2021-04-05] MEDS: LIDOCAINE 2% SSW SCH ×4 (09:11→22:03)
[2021-04-05] MEDS: [UNRECOGNIZED DRUG - OTHER] SSW SCH ×4 (09:11→22:03)
[2021-04-05] MEDS: MAGNESIUM HYDROXIDE SSW SCH ×4 (09:11→22:03)
[2021-04-05] MEDS: Milk Of Magnesia 30 ML UDCUP PO SCH (09:11)
[2021-04-05] MEDS: Calcium Citrate 950 MG (200MG) TAB PER TUBE SCH ×2 (10:29→15:19)
[2021-04-05] MEDS: Azithromycin 500 MG in Sodium Chloride 0.9% 250 ML 250 ML IVPB SCH (11:42)
[2021-04-05 13:11] VITALS: BMI 26.9
[2021-04-05] MEDS: Atorvastatin Calcium 40 MG TAB PER TUBE SCH (22:02)
[2021-04-06] MEDS: Pantoprazole 40 MG GRANULES PACKET PER TUBE SCH ×2 (00:19→13:06)
[2021-04-06 05:06] LABS: Hemoglobin 10.3 g/dL (14.0-18.0); Mean Corpuscular Hemoglobin 33.4 pg (27.0-31.0); Mean Platelet Volume 10.4 fL (7.4-10.4); Platelet Count 188 thou/uL (130-400); RBC Distribution Width 13.4 % (11.5-14.5); Red Blood Cell (RBC) Count 3.09 mill/uL (4.70-6.10); White Blood Cell (WBC) Count 11.1 thou/uL (4.8-10.8)
[2021-04-06 05:14] LABS: Anion Gap 10 mmol/L (10-20); BUN (Urea Nitrogen) 28 mg/dL (8.4-25.7); Calc. Creatinine Clearance 81 mL/min (70-130); Calcium 7.4 mg/dL (7.8-10.44); Carbon Dioxide 24 mmol/L (23-31); Chloride 111 mmol/L (98-107); Glucose 166 mg/dL (83-110); Potassium 3.1 mmol/L (3.5-5.1); Sodium 142 mmol/L (136-145)
[2021-04-06 05:33] LABS: Band 4 % (5-11); Eosinophils 3 % (0-10); Lymphocytes 7 % (21-51); MDiff Complete? YES; Monocytes 3 % (0-10); Neutrophil 83 % (42-75)
[2021-04-06] MEDS: Nitroglycerin 2% Ointment 1 INCH/1 GM Packet TOP SCH ×3 (05:36→22:41)
[2021-04-06] MEDS ORDERED: Docusate Sodium 100 MG/10 ML UDCUP PO SCH (09:00)
[2021-04-06] MEDS: Sacubitril 49 MG/Valsartan 51 MG TABLET PER TUBE SCH ×2 (10:01→20:57)
[2021-04-06] MEDS: Amiodarone 200 MG TAB PER TUBE SCH ×3 (10:01→20:57)
[2021-04-06] MEDS: Ascorbic Acid 500 mg Chewable Tablet PER TUBE SCH (10:01)
[2021-04-06] MEDS: Trospium 20 MG TAB PER TUBE SCH ×2 (10:01→20:57)
[2021-04-06] MEDS: Spironolactone 25 MG TAB PER TUBE SCH ×2 (10:02→16:42)
[2021-04-06] MEDS: Potassium Bicarbonate/Cit Ac 20 MEQ TAB PER TUBE SCH ×3 (10:02→16:42)
[2021-04-06] MEDS: Aspirin Chewable 81 MG TAB PER TUBE SCH (10:02)
[2021-04-06] MEDS: Docusate 100 MG CAP PO SCH (10:02)
[2021-04-06] MEDS: Milk Of Magnesia 30 ML UDCUP PER TUBE SCH (10:03)
[2021-04-06] MEDS: Lantus 1000 UNITS/10 ML VIAL SC SCH (10:03)
[2021-04-06] MEDS: Clopidogrel Bisulfate 75 MG TAB PER TUBE SCH (10:03)
[2021-04-06] MEDS: Digoxin 0.5 MG/2 ML AMP SLOW IVP SCH (10:05)
[2021-04-06] MEDS: LIDOCAINE 2% SSW SCH ×5 (10:09→20:57)
[2021-04-06] MEDS: [UNRECOGNIZED DRUG - OTHER] SSW SCH ×5 (10:09→20:57)
[2021-04-06] MEDS: MAGNESIUM HYDROXIDE SSW SCH ×5 (10:09→20:57)
[2021-04-06] MEDS: Docusate Sodium 100 MG/10 ML UDCUP PER TUBE SCH ×2 (10:12→20:57)
[2021-04-06] MEDS: Multivits W-Minerals Liquid 15 ML LIQ PER TUBE SCH (10:12)
[2021-04-06] MEDS: Alogliptin 25 MG TAB PER TUBE SCH (13:04)
[2021-04-06] MEDS: Azithromycin 500 MG in Sodium Chloride 0.9% 250 ML 250 ML IVPB SCH (13:04)
[2021-04-06] MEDS: Atorvastatin Calcium 40 MG TAB PER TUBE SCH (20:57)
[2021-04-07] MEDS: Pantoprazole 40 MG GRANULES PACKET PER TUBE SCH ×2 (00:14→11:27)
[2021-04-07] MEDS: Nitroglycerin 2% Ointment 1 INCH/1 GM Packet TOP SCH ×3 (05:18→21:03)
[2021-04-07 07:37] LABS: Anion Gap 11 mmol/L (10-20); BUN (Urea Nitrogen) 26 mg/dL (8.4-25.7); Calc. Creatinine Clearance 84 mL/min (70-130); Calcium 7.4 mg/dL (7.8-10.44); Carbon Dioxide 25 mmol/L (23-31); Chloride 110 mmol/L (98-107); Glucose 98 mg/dL (83-110); Potassium 3.7 mmol/L (3.5-5.1); Sodium 142 mmol/L (136-145)
[2021-04-07 08:13] LABS: Band 2 % (5-11); Hemoglobin 10.3 g/dL (14.0-18.0); Lymphocytes 8 % (21-51); MDiff Complete? YES; Macrocytosis SLIGHT = 6-15 cells (100X) (0-5/hpf); Mean Corpuscular HGB CONC 32.4 g/dL (32.0-36.0); Mean Platelet Volume 10.5 fL (7.4-10.4); Monocytes 6 % (0-10); Neutrophil 83 % (42-75); Platelet Count 179 thou/uL (130-400); RBC Distribution Width 13.4 % (11.5-14.5); Red Blood Cell (RBC) Count 3.12 mill/uL (4.70-6.10); White Blood Cell (WBC) Count 10.6 thou/uL (4.8-10.8)
[2021-04-07] MEDS ORDERED: ceFAZolin Sodium (SDC) 2 GM/100 ML BAG ONE (08:22)
[2021-04-07] MEDS ORDERED: PHENYLEPHRINE-NS 100 MCG/ML 10 ML SYRINGE ONE ×2 (08:25→08:26)
[2021-04-07] MEDS ORDERED: Lidocaine 1% PF 5 ML VIAL ONE (08:26)
[2021-04-07] MEDS ORDERED: PROPOFOL 200 MG/20 ML VIAL ONE (08:26)
[2021-04-07] MEDS: Multivits W-Minerals Liquid 15 ML LIQ PER TUBE SCH (09:56)
[2021-04-07] MEDS: Potassium Bicarbonate/Cit Ac 20 MEQ TAB PER TUBE SCH ×3 (09:56→16:53)
[2021-04-07] MEDS: Digoxin 0.5 MG/2 ML AMP SLOW IVP SCH (09:57)
[2021-04-07] MEDS: Docusate Sodium 100 MG/10 ML UDCUP PER TUBE SCH ×2 (09:57→21:03)
[2021-04-07] MEDS: Spironolactone 25 MG TAB PER TUBE SCH ×2 (09:58→16:55)
[2021-04-07] MEDS: Ascorbic Acid 500 mg Chewable Tablet PER TUBE SCH (09:58)
[2021-04-07] MEDS: Amiodarone 200 MG TAB PER TUBE SCH ×3 (09:58→21:03)
[2021-04-07] MEDS: Sacubitril 49 MG/Valsartan 51 MG TABLET PER TUBE SCH ×2 (09:58→21:03)
[2021-04-07] MEDS: Trospium 20 MG TAB PER TUBE SCH ×2 (09:58→21:03)
[2021-04-07] MEDS: Aspirin Chewable 81 MG TAB PER TUBE SCH (09:58)
[2021-04-07] MEDS: Alogliptin 25 MG TAB PER TUBE SCH (09:59)
[2021-04-07] MEDS: Milk Of Magnesia 30 ML UDCUP PER TUBE SCH (09:59)
[2021-04-07] MEDS: Lantus 1000 UNITS/10 ML VIAL SC SCH (09:59)
[2021-04-07] MEDS: Calcium Citrate 950 MG (200MG) TAB PER TUBE SCH (10:00)
[2021-04-07] MEDS: Clopidogrel Bisulfate 75 MG TAB PER TUBE SCH (10:01)
[2021-04-07] MEDS: MAGNESIUM HYDROXIDE SSW SCH ×4 (10:02→21:04)
[2021-04-07] MEDS: [UNRECOGNIZED DRUG - OTHER] SSW SCH ×4 (10:02→21:04)
[2021-04-07] MEDS: LIDOCAINE 2% SSW SCH ×4 (10:02→21:04)
[2021-04-07] MEDS: Azithromycin 500 MG in Sodium Chloride 0.9% 250 ML 250 ML IVPB SCH (11:28)
[2021-04-07] MEDS ORDERED: Ibuprofen 200 MG TAB PO SCH (15:30)
[2021-04-07] MEDS: Atorvastatin Calcium 40 MG TAB PER TUBE SCH (21:03)
[2021-04-07] MEDS ORDERED: Enoxaparin Sodium 40 MG/0.4 ML SYRINGE SC SCH (21:30)
[2021-04-08] MEDS: Pantoprazole 40 MG GRANULES PACKET PER TUBE SCH ×2 (00:53→11:55)
[2021-04-08] MEDS: Nitroglycerin 2% Ointment 1 INCH/1 GM Packet TOP SCH ×3 (05:18→21:39)
[2021-04-08 07:46] LABS: Anion Gap 11 mmol/L (10-20); BUN (Urea Nitrogen) 25 mg/dL (8.4-25.7); Calc. Creatinine Clearance 77 mL/min (70-130); Calcium 7.8 mg/dL (7.8-10.44); Carbon Dioxide 28 mmol/L (23-31); Chloride 107 mmol/L (98-107); Glucose 165 mg/dL (83-110); Potassium 4.5 mmol/L (3.5-5.1); Sodium 141 mmol/L (136-145)
[2021-04-08 08:01] LABS: Band 2 % (5-11); Hemoglobin 10.7 g/dL (14.0-18.0); Lymphocytes 9 % (21-51); MDiff Complete? YES; Macrocytosis SLIGHT = 6-15 cells (100X) (0-5/hpf); Mean Corpuscular HGB CONC 32.2 g/dL (32.0-36.0); Mean Corpuscular Hemoglobin 33.4 pg (27.0-31.0); Mean Platelet Volume 10.1 fL (7.4-10.4); Monocytes 4 % (0-10); Neutrophil 85 % (42-75); Platelet Count 195 thou/uL (130-400); RBC Distribution Width 13.6 % (11.5-14.5); White Blood Cell (WBC) Count 10.3 thou/uL (4.8-10.8)
[2021-04-08] MEDS ORDERED: Enoxaparin Sodium 40 MG/0.4 ML SYRINGE SC SCH (09:00)
[2021-04-08] MEDS: Docusate Sodium 100 MG/10 ML UDCUP PER TUBE SCH ×2 (09:35→21:39)
[2021-04-08] MEDS: Multivits W-Minerals Liquid 15 ML LIQ PER TUBE SCH (09:35)
[2021-04-08] MEDS: Milk Of Magnesia 30 ML UDCUP PER TUBE SCH (09:36)
[2021-04-08] MEDS: Trospium 20 MG TAB PER TUBE SCH ×2 (09:36→21:39)
[2021-04-08] MEDS: Ascorbic Acid 500 mg Chewable Tablet PER TUBE SCH (09:36)
[2021-04-08] MEDS: Clopidogrel Bisulfate 75 MG TAB PER TUBE SCH (09:36)
[2021-04-08] MEDS: Digoxin 0.5 MG/2 ML AMP SLOW IVP SCH (09:36)
[2021-04-08] MEDS: Sacubitril 49 MG/Valsartan 51 MG TABLET PER TUBE SCH ×2 (09:36→21:39)
[2021-04-08] MEDS: Spironolactone 25 MG TAB PER TUBE SCH ×2 (09:36→16:28)
[2021-04-08] MEDS: Amiodarone 200 MG TAB PER TUBE SCH ×3 (09:36→21:38)
[2021-04-08] MEDS: Potassium Bicarbonate/Cit Ac 20 MEQ TAB PER TUBE SCH ×3 (09:36→16:28)
[2021-04-08] MEDS: Calcium Citrate 950 MG (200MG) TAB PER TUBE SCH (09:37)
[2021-04-08] MEDS: Lantus 1000 UNITS/10 ML VIAL SC SCH (09:39)
[2021-04-08] MEDS: Aspirin Chewable 81 MG TAB PER TUBE SCH (09:46)
[2021-04-08] MEDS: [UNRECOGNIZED DRUG - OTHER] SSW SCH ×4 (09:47→21:40)
[2021-04-08] MEDS: LIDOCAINE 2% SSW SCH ×4 (09:47→21:40)
[2021-04-08] MEDS: MAGNESIUM HYDROXIDE SSW SCH ×4 (09:47→21:40)
[2021-04-08] MEDS: Alogliptin 25 MG TAB PER TUBE SCH (09:49)
[2021-04-08] MEDS ORDERED: Enoxaparin Sodium 80 MG/0.8 ML SYRINGE SC SCH ×2 (11:00→23:00)
[2021-04-08 11:22] LABS: INR-International Normal Ratio 1.2; PTT 38.1 sec (22.9-36.1)
[2021-04-08] MEDS: Insulin Regular 300 UNITS/3 ML VIAL SC PRN (11:55)
[2021-04-08] MEDS: Azithromycin 500 MG in Sodium Chloride 0.9% 250 ML 250 ML IVPB SCH (12:20)
[2021-04-08] MEDS: Atorvastatin Calcium 40 MG TAB PER TUBE SCH (21:39)
[2021-04-08 23:58] LABS: Magnesium 1.8 mg/dL (1.6-2.6)
[2021-04-09] MEDS: Pantoprazole 40 MG GRANULES PACKET PER TUBE SCH ×2 (00:05→12:21)
[2021-04-09] MEDS: Nitroglycerin 2% Ointment 1 INCH/1 GM Packet TOP SCH ×3 (05:04→20:45)
[2021-04-09 05:31] LABS: Hemoglobin 10.9 g/dL (14.0-18.0); Mean Corpuscular HGB CONC 31.8 g/dL (32.0-36.0); Mean Corpuscular Hemoglobin 32.5 pg (27.0-31.0); Mean Platelet Volume 10.6 fL (7.4-10.4); Platelet Count 183 thou/uL (130-400); RBC Distribution Width 13.5 % (11.5-14.5); Red Blood Cell (RBC) Count 3.34 mill/uL (4.70-6.10); White Blood Cell (WBC) Count 10.8 thou/uL (4.8-10.8)
[2021-04-09 05:50] LABS: Anion Gap 14 mmol/L (10-20); BUN (Urea Nitrogen) 23 mg/dL (8.4-25.7); Calc. Creatinine Clearance 78 mL/min (70-130); Calcium 8.2 mg/dL (7.8-10.44); Carbon Dioxide 24 mmol/L (23-31); Chloride 107 mmol/L (98-107); Glucose 128 mg/dL (83-110); Potassium 4.5 mmol/L (3.5-5.1); Sodium 140 mmol/L (136-145)
[2021-04-09 06:17] LABS: Band 4 % (5-11); Eosinophils 1 % (0-10); Lymphocytes 10 % (21-51); MDiff Complete? YES; Monocytes 2 % (0-10); Neutrophil 83 % (42-75)
[2021-04-09] MEDS: Enoxaparin Sodium 80 MG/0.8 ML SYRINGE SC SCH ×2 (09:43→20:46)
[2021-04-09] MEDS: Potassium Bicarbonate/Cit Ac 20 MEQ TAB PER TUBE SCH ×3 (09:43→17:11)
[2021-04-09] MEDS: Clopidogrel Bisulfate 75 MG TAB PER TUBE SCH (09:43)
[2021-04-09] MEDS: Aspirin Chewable 81 MG TAB PER TUBE SCH (09:44)
[2021-04-09] MEDS: Spironolactone 25 MG TAB PER TUBE SCH ×2 (09:44→17:10)
[2021-04-09] MEDS: Trospium 20 MG TAB PER TUBE SCH ×2 (09:44→20:45)
[2021-04-09] MEDS: Ascorbic Acid 500 mg Chewable Tablet PER TUBE SCH (09:44)
[2021-04-09] MEDS: Sacubitril 49 MG/Valsartan 51 MG TABLET PER TUBE SCH ×2 (09:44→20:45)
[2021-04-09] MEDS: Docusate Sodium 100 MG/10 ML UDCUP PER TUBE SCH ×2 (09:45→20:46)
[2021-04-09] MEDS: Calcium Citrate 950 MG (200MG) TAB PER TUBE SCH (09:45)
[2021-04-09] MEDS: Digoxin 0.5 MG/2 ML AMP SLOW IVP SCH (09:46)
[2021-04-09] MEDS: Alogliptin 25 MG TAB PER TUBE SCH (09:46)
[2021-04-09] MEDS: Amiodarone 200 MG TAB PER TUBE SCH ×3 (09:47→20:45)
[2021-04-09] MEDS: Multivits W-Minerals Liquid 15 ML LIQ PER TUBE SCH (09:47)
[2021-04-09] MEDS: Milk Of Magnesia 30 ML UDCUP PER TUBE SCH (09:48)
[2021-04-09] MEDS: Lantus 1000 UNITS/10 ML VIAL SC SCH (09:49)
[2021-04-09] MEDS: LIDOCAINE 2% SSW SCH ×4 (10:47→20:46)
[2021-04-09] MEDS: MAGNESIUM HYDROXIDE SSW SCH ×4 (10:47→20:46)
[2021-04-09] MEDS: [UNRECOGNIZED DRUG - OTHER] SSW SCH ×4 (10:47→20:46)
[2021-04-09] MEDS ORDERED: Furosemide 20 MG/2 ML VIAL SLOW IVP SCH (11:15)
[2021-04-09] MEDS: Azithromycin 500 MG in Sodium Chloride 0.9% 250 ML 250 ML IVPB SCH (12:21)
[2021-04-09] MEDS: Atorvastatin Calcium 40 MG TAB PER TUBE SCH (20:45)
[2021-04-10 05:14] LABS: Hemoglobin 10.7 g/dL (14.0-18.0); Mean Corpuscular HGB CONC 31.3 g/dL (32.0-36.0); Mean Corpuscular Hemoglobin 32.4 pg (27.0-31.0); Mean Platelet Volume 9.9 fL (7.4-10.4); Platelet Count 187 thou/uL (130-400); RBC Distribution Width 13.2 % (11.5-14.5); Red Blood Cell (RBC) Count 3.32 mill/uL (4.70-6.10); White Blood Cell (WBC) Count 8.7 thou/uL (4.8-10.8)
[2021-04-10 05:29] LABS: Anion Gap 11 mmol/L (10-20); BUN (Urea Nitrogen) 23 mg/dL (8.4-25.7); Calc. Creatinine Clearance 75 mL/min (70-130); Calcium 8.2 mg/dL (7.8-10.44); Carbon Dioxide 27 mmol/L (23-31); Chloride 104 mmol/L (98-107); Glucose 75 mg/dL (83-110); Potassium 4.4 mmol/L (3.5-5.1); Sodium 138 mmol/L (136-145)
[2021-04-10] MEDS: Nitroglycerin 2% Ointment 1 INCH/1 GM Packet TOP SCH ×3 (05:39→20:29)
[2021-04-10 05:48] LABS: Band 6 % (5-11); Eosinophils 1 % (0-10); Lymphocytes 8 % (21-51); MDiff Complete? YES; Monocytes 5 % (0-10); Neutrophil 80 % (42-75)
[2021-04-10] MEDS: Alogliptin 25 MG TAB PER TUBE SCH (09:00)
[2021-04-10] MEDS: Ascorbic Acid 500 mg Chewable Tablet PER TUBE SCH (09:00)
[2021-04-10] MEDS: Digoxin 0.5 MG/2 ML AMP SLOW IVP SCH (09:00)
[2021-04-10] MEDS: Trospium 20 MG TAB PER TUBE SCH ×2 (09:00→20:25)
[2021-04-10] MEDS: Potassium Bicarbonate/Cit Ac 20 MEQ TAB PER TUBE SCH ×3 (09:00→17:45)
[2021-04-10] MEDS: LIDOCAINE 2% SSW SCH ×4 (09:00→20:24)
[2021-04-10] MEDS: Spironolactone 25 MG TAB PER TUBE SCH ×2 (09:00→17:45)
[2021-04-10] MEDS: Docusate Sodium 100 MG/10 ML UDCUP PER TUBE SCH ×2 (09:00→20:23)
[2021-04-10] MEDS: Sacubitril 49 MG/Valsartan 51 MG TABLET PER TUBE SCH ×2 (09:00→20:25)
[2021-04-10] MEDS: Clopidogrel Bisulfate 75 MG TAB PER TUBE SCH (09:00)
[2021-04-10] MEDS: Aspirin Chewable 81 MG TAB PER TUBE SCH (09:00)
[2021-04-10] MEDS: [UNRECOGNIZED DRUG - OTHER] SSW SCH ×4 (09:00→20:24)
[2021-04-10] MEDS: Pantoprazole 40 MG GRANULES PACKET PER TUBE SCH ×2 (09:00→20:25)
[2021-04-10] MEDS: Lantus 1000 UNITS/10 ML VIAL SC SCH (09:00)
[2021-04-10] MEDS: Calcium Citrate 950 MG (200MG) TAB PER TUBE SCH (09:00)
[2021-04-10] MEDS: Enoxaparin Sodium 80 MG/0.8 ML SYRINGE SC SCH ×2 (09:00→20:23)
[2021-04-10] MEDS: Amiodarone 200 MG TAB PER TUBE SCH ×3 (09:00→20:25)
[2021-04-10] MEDS: Milk Of Magnesia 30 ML UDCUP PER TUBE SCH (09:00)
[2021-04-10] MEDS: MAGNESIUM HYDROXIDE SSW SCH ×4 (09:00→20:24)
[2021-04-10] MEDS: Multivits W-Minerals Liquid 15 ML LIQ PER TUBE SCH (09:00)
[2021-04-10] MEDS: Atorvastatin Calcium 40 MG TAB PER TUBE SCH (20:25)
[2021-04-11 05:45] LABS: ALT (SGPT) 54 U/L (8-55); AST (SGOT) 84 U/L (5-34); Albumin 2.9 g/dL (3.4-4.8); Alkaline Phosphatase 106 U/L (40-110); Anion Gap 16 mmol/L (10-20); BUN (Urea Nitrogen) 24 mg/dL (8.4-25.7); Bilirubin, Total 0.9 mg/dL (0.2-1.2); Calc. Creatinine Clearance 65 mL/min (70-130); Calcium 8.4 mg/dL (7.8-10.44); Carbon Dioxide 24 mmol/L (23-31); Chloride 103 mmol/L (98-107); Globulin 3.5 g/dL (2.4-3.5); Glucose 184 mg/dL (83-110); Potassium 4.6 mmol/L (3.5-5.1); Protein, Total 6.4 g/dL (5.8-8.1); Sodium 138 mmol/L (136-145)
[2021-04-11 05:46] LABS: Hemoglobin 10.7 g/dL (14.0-18.0); Mean Corpuscular HGB CONC 31.8 g/dL (32.0-36.0); Mean Corpuscular Hemoglobin 32.4 pg (27.0-31.0); Mean Platelet Volume 10.3 fL (7.4-10.4); Platelet Count 183 thou/uL (130-400); RBC Distribution Width 13.2 % (11.5-14.5); Red Blood Cell (RBC) Count 3.32 mill/uL (4.70-6.10); White Blood Cell (WBC) Count 10.2 thou/uL (4.8-10.8)
[2021-04-11] MEDS: Nitroglycerin 2% Ointment 1 INCH/1 GM Packet TOP SCH ×3 (05:49→22:07)
[2021-04-11] MEDS: Insulin Regular 300 UNITS/3 ML VIAL SC PRN (05:49)
[2021-04-11 06:40] LABS: Band 7 % (5-11); Lymphocytes 15 % (21-51); MDiff Complete? YES; Monocytes 2 % (0-10); Neutrophil 76 % (42-75)
[2021-04-11] MEDS: Docusate Sodium 100 MG/10 ML UDCUP PER TUBE SCH ×2 (09:26→21:24)
[2021-04-11] MEDS: Digoxin 0.5 MG/2 ML AMP SLOW IVP SCH (09:26)
[2021-04-11] MEDS: Aspirin Chewable 81 MG TAB PER TUBE SCH (09:29)
[2021-04-11] MEDS: Clopidogrel Bisulfate 75 MG TAB PER TUBE SCH (09:29)
[2021-04-11] MEDS: Sacubitril 49 MG/Valsartan 51 MG TABLET PER TUBE SCH ×2 (09:29→21:25)
[2021-04-11] MEDS: Potassium Bicarbonate/Cit Ac 20 MEQ TAB PER TUBE SCH ×3 (09:29→18:05)
[2021-04-11] MEDS: Trospium 20 MG TAB PER TUBE SCH ×2 (09:29→21:25)
[2021-04-11] MEDS: Calcium Citrate 950 MG (200MG) TAB PER TUBE SCH (09:29)
[2021-04-11] MEDS: Pantoprazole 40 MG GRANULES PACKET PER TUBE SCH ×2 (09:29→21:24)
[2021-04-11] MEDS: Amiodarone 200 MG TAB PER TUBE SCH ×3 (09:29→21:25)
[2021-04-11] MEDS: Ascorbic Acid 500 mg Chewable Tablet PER TUBE SCH (09:29)
[2021-04-11] MEDS: Spironolactone 25 MG TAB PER TUBE SCH ×2 (09:29→17:00)
[2021-04-11] MEDS: Lantus 1000 UNITS/10 ML VIAL SC SCH (09:30)
[2021-04-11] MEDS: Multivits W-Minerals Liquid 15 ML LIQ PER TUBE SCH (09:52)
[2021-04-11] MEDS: MAGNESIUM HYDROXIDE SSW SCH ×4 (09:52→21:23)
[2021-04-11] MEDS: LIDOCAINE 2% SSW SCH ×4 (09:52→21:23)
[2021-04-11] MEDS: Alogliptin 25 MG TAB PER TUBE SCH (09:52)
[2021-04-11] MEDS: Milk Of Magnesia 30 ML UDCUP PER TUBE SCH (09:52)
[2021-04-11] MEDS: [UNRECOGNIZED DRUG - OTHER] SSW SCH ×4 (09:52→21:23)
[2021-04-11] MEDS: Enoxaparin Sodium 80 MG/0.8 ML SYRINGE SC SCH ×2 (09:52→21:25)
[2021-04-11] MEDS: Atorvastatin Calcium 40 MG TAB PER TUBE SCH (21:25)
[2021-04-11 22:44] LABS: SARS-CoV-2 PCR by NAA Not Detected (NotDetected)
[2021-04-12 05:40] LABS: Band 8 % (5-11); Hemoglobin 9.5 g/dL (14.0-18.0); Lymphocytes 10 % (21-51); MDiff Complete? YES; Mean Corpuscular HGB CONC 33.3 g/dL (32.0-36.0); Mean Corpuscular Hemoglobin 33.9 pg (27.0-31.0); Monocytes 9 % (0-10); Neutrophil 73 % (42-75); Nucleated RBC 1 % (0); Platelet Count 151 thou/uL (130-400); RBC Distribution Width 13.4 % (11.5-14.5); Red Blood Cell (RBC) Count 2.79 mill/uL (4.70-6.10); White Blood Cell (WBC) Count 8.8 thou/uL (4.8-10.8)
[2021-04-12 05:42] LABS: Anion Gap 12 mmol/L (10-20); BUN (Urea Nitrogen) 31 mg/dL (8.4-25.7); Calc. Creatinine Clearance 61 mL/min (70-130); Calcium 8.6 mg/dL (7.8-10.44); Carbon Dioxide 27 mmol/L (23-31); Chloride 105 mmol/L (98-107); Glucose 203 mg/dL (83-110); Potassium 4.1 mmol/L (3.5-5.1); Sodium 140 mmol/L (136-145)
[2021-04-12] MEDS: Nitroglycerin 2% Ointment 1 INCH/1 GM Packet TOP SCH ×2 (06:22→15:12)
[2021-04-12] MEDS ORDERED: Insulin Regular 300 UNITS/3 ML VIAL SC PRN (07:45)
[2021-04-12 07:55] LABS: Hemoglobin A1c 6.9 % (4.0-6.0)
[2021-04-12] MEDS ORDERED: Lantus 1000 UNITS/10 ML VIAL SC SCH (09:00)
[2021-04-12] MEDS: Potassium Bicarbonate/Cit Ac 20 MEQ TAB PER TUBE SCH ×3 (09:25→17:00)
[2021-04-12] MEDS: Pantoprazole 40 MG GRANULES PACKET PER TUBE SCH (09:25)
[2021-04-12] MEDS: Aspirin Chewable 81 MG TAB PER TUBE SCH (09:25)
[2021-04-12] MEDS: Ascorbic Acid 500 mg Chewable Tablet PER TUBE SCH (09:25)
[2021-04-12] MEDS: Calcium Citrate 950 MG (200MG) TAB PER TUBE SCH (09:25)
[2021-04-12] MEDS: Trospium 20 MG TAB PER TUBE SCH (09:25)
[2021-04-12] MEDS: Enoxaparin Sodium 80 MG/0.8 ML SYRINGE SC SCH (09:25)
[2021-04-12] MEDS: Clopidogrel Bisulfate 75 MG TAB PER TUBE SCH (09:26)
[2021-04-12] MEDS: Sacubitril 49 MG/Valsartan 51 MG TABLET PER TUBE SCH (09:26)
[2021-04-12] MEDS: Spironolactone 25 MG TAB PER TUBE SCH ×2 (09:26→17:00)
[2021-04-12] MEDS: Amiodarone 200 MG TAB PER TUBE SCH ×2 (09:26→15:13)
[2021-04-12] MEDS: Alogliptin 25 MG TAB PER TUBE SCH (09:55)
[2021-04-12] MEDS: Docusate Sodium 100 MG/10 ML UDCUP PER TUBE SCH (09:56)
[2021-04-12] MEDS: Milk Of Magnesia 30 ML UDCUP PER TUBE SCH (09:56)
[2021-04-12] MEDS: Digoxin 0.5 MG/2 ML AMP SLOW IVP SCH (09:56)
[2021-04-12] MEDS: LIDOCAINE 2% SSW SCH ×3 (09:57→17:00)
[2021-04-12] MEDS: [UNRECOGNIZED DRUG - OTHER] SSW SCH ×3 (09:57→17:00)
[2021-04-12] MEDS: MAGNESIUM HYDROXIDE SSW SCH ×3 (09:57→17:00)
[2021-04-12] MEDS: Multivits W-Minerals Liquid 15 ML LIQ PER TUBE SCH (09:57)
[2021-04-12 20:12] VITALS: BP 133/60; TEMP 98.5
== END 2021-04-12 20:20 | DRG 246 ==
LOC: ERS 14:57 → CCU 15:30 → T4-A 03-29 19:08 → 2NO 03-30 16:42
PROVIDERS: ADMIT Internal Medicine Cardiovascular Disease; ATTEND Nurse Practitioner Family
PROC: 027035Z Dilation of Coronary Artery, One Artery with Two Drug-eluting Intraluminal Devices, Percutaneous Approach (ICD-10-PCS; principal; 2021-03-19)
PROC: 02C03ZZ Extirpation of Matter from Coronary Artery, One Artery, Percutaneous Approach (ICD-10-PCS; 2021-03-19)
PROC: 4A023N7 Measurement of Cardiac Sampling and Pressure, Left Heart, Percutaneous Approach (ICD-10-PCS; 2021-03-19)
PROC: B2111ZZ Fluoroscopy of Multiple Coronary Arteries using Low Osmolar Contrast (ICD-10-PCS; 2021-03-19)
PROC: 5A1223Z Performance of Cardiac Pacing, Continuous (ICD-10-PCS; 2021-03-19)
PROC: 3E033XZ Introduction of Vasopressor into Peripheral Vein, Percutaneous Approach (ICD-10-PCS; 2021-03-19)
PROC: 0BH17EZ Insertion of Endotracheal Airway into Trachea, Via Natural or Artificial Opening (ICD-10-PCS; 2021-03-19)
PROC: 5A1935Z Respiratory Ventilation, Less than 24 Consecutive Hours (ICD-10-PCS; 2021-03-19)
PROC: 0D9670Z Drainage of Stomach with Drainage Device, Via Natural or Artificial Opening (ICD-10-PCS; 2021-03-19)
PROC: B2151ZZ Fluoroscopy of Left Heart using Low Osmolar Contrast (ICD-10-PCS; 2021-03-19)
PROC: 0T2BX0Z Change Drainage Device in Bladder, External Approach (ICD-10-PCS; 2021-03-22)
PROC: 0BH18EZ Insertion of Endotracheal Airway into Trachea, Via Natural or Artificial Opening Endoscopic (ICD-10-PCS; 2021-03-23)
PROC: 5A1955Z Respiratory Ventilation, Greater than 96 Consecutive Hours (ICD-10-PCS; 2021-03-23)
PROC: 0DH67UZ Insertion of Feeding Device into Stomach, Via Natural or Artificial Opening (ICD-10-PCS; 2021-03-23)
PROC: 0B918ZZ Drainage of Trachea, Via Natural or Artificial Opening Endoscopic (ICD-10-PCS; 2021-03-23)
PROC: 0D2DXUZ Change Feeding Device in Lower Intestinal Tract, External Approach (ICD-10-PCS; 2021-04-02)
PROC: 0DH63UZ Insertion of Feeding Device into Stomach, Percutaneous Approach (ICD-10-PCS; 2021-04-07)
DX: I21.19 ST elevation (STEMI) myocardial infarction involving other coronary artery of inferior wall (principal); J96.01 Acute respiratory failure with hypoxia; J13 Pneumonia due to Streptococcus pneumoniae; J69.0 Pneumonitis due to inhalation of food and vomit; Q61.3 Polycystic kidney, unspecified; T82.897A Other specified complication of cardiac prosthetic devices, implants and grafts, initial encounter; I25.810 Atherosclerosis of coronary artery bypass graft(s) without angina pectoris; I13.0 Hypertensive heart and chronic kidney disease with heart failure and stage 1 through stage 4 chronic kidney disease, or unspecified chronic kidney disease; I47.2 Ventricular tachycardia; G93.40 Encephalopathy, unspecified; N17.9 Acute kidney failure, unspecified; I48.92 Unspecified atrial flutter; E87.0 Hyperosmolality and hypernatremia; I82.621 Acute embolism and thrombosis of deep veins of right upper extremity; E44.0 Moderate protein-calorie malnutrition; Z66 Do not resuscitate; Z20.822 Contact with and (suspected) exposure to COVID-19; E78.00 Pure hypercholesterolemia, unspecified; N40.1 Benign prostatic hyperplasia with lower urinary tract symptoms; R33.8 Other retention of urine; E78.5 Hyperlipidemia, unspecified; I25.5 Ischemic cardiomyopathy; I50.9 Heart failure, unspecified; I44.0 Atrioventricular block, first degree; I44.1 Atrioventricular block, second degree; I48.91 Unspecified atrial fibrillation; E11.22 Type 2 diabetes mellitus with diabetic chronic kidney disease; Z96.653 Presence of artificial knee joint, bilateral; N18.9 Chronic kidney disease, unspecified; D69.6 Thrombocytopenia, unspecified; R13.12 Dysphagia, oropharyngeal phase; Y95 Nosocomial condition; Z88.8 Allergy status to other drugs, medicaments and biological substances; Z91.040 Latex allergy status; Z79.899 Other long term (current) drug therapy; Z78.1 Physical restraint status; Z95.1 Presence of aortocoronary bypass graft; Z79.84 Long term (current) use of oral hypoglycemic drugs; Z90.49 Acquired absence of other specified parts of digestive tract; Z98.890 Other specified postprocedural states; Y83.8 Other surgical procedures as the cause of abnormal reaction of the patient, or of later complication, without mention of misadventure at the time of the procedure; E87.5 Hyperkalemia; Z68.25 Body mass index [BMI] 25.0-25.9, adult; Z93.50 Unspecified cystostomy status
CPT/HCPCS: 31500; 33210; 36415; 36416; 36600; 70450; 71045; 74018; 80048; 80053; 82533; 82805; 83036; 83735; 84100; 84443; 84484; 85007; 85025; 85027; 85347; 85610; 85730; 86769; 87040; 87070; 87077; 87149; 87186; 87205; 89220; 92941; 93005; 93010; 93306; 93454; 93798; 94002; 94003; 96365; 96375; 99152; 99153; C1769; C9113; C9606; J0171; J0282; J0360; J0456; J0690; J0692; J0696; J1160; J1200; J1644; J1650; J1815; J1940; J2060; J2250; J2270; J2405; J2704; J2930; J3010; J3490; J7050; J7070; P9047; Q9967; S0028; U0002; U0003; U0005

== ENCOUNTER 2021-05-08 14:25 | Emergency (ER) | payer MEDICARE, OTHER ==
[2021-05-08 15:15] LABS: Bilirubin Negative (Negative); Blood, Urine Negative (Negative); Glucose, Urine (Dipstick) Normal (Negative); Ketone, Urine Negative (Negative); Leukocyte 500 Leu/uL (Negative); Nitrite Negative (Negative); Protein, Urine (Dipstick) 20 mg/dL (Neg-Trace); RBC/HPF 0-3 HPF (0-3); Specific Gravity, Urine 1.013 (1.002-1.036); Squamous Epithelial 0-3 HPF (0-3); WBC/HPF Greater than 50 HPF (0-3)
[2021-05-08 15:23] LABS: #Lymphocytes 0.6 thou/uL (1.20-3.40); #Monocytes 0.6 thou/uL (0.11-0.59); #Neutrophils 7.4 thou/uL (1.40-6.50); %Basophils 0.2 % (0.0-1.0); %Eosinophils 0.5 % (0.0-10.0); %Lymphocytes 7.4 % (21.0-51.0); %Monocytes 6.5 % (0.0-10.0); %Neutrophils 85.5 % (42.0-75.0); Hemoglobin 10.3 g/dL (14.0-18.0); Mean Corpuscular HGB CONC 31.9 g/dL (32.0-36.0); Mean Corpuscular Hemoglobin 33.6 pg (27.0-31.0); Mean Platelet Volume 8.2 fL (7.4-10.4); Platelet Count 183 thou/uL (130-400); RBC Distribution Width 15.3 % (11.5-14.5); Red Blood Cell (RBC) Count 3.07 mill/uL (4.70-6.10); White Blood Cell (WBC) Count 8.7 thou/uL (4.8-10.8)
[2021-05-08 15:34] LABS: Clarity Cloudy (Clear)
[2021-05-08 15:35] LABS: Bacteria/HPF 1+ HPF (None Seen)
[2021-05-08 15:46] LABS: ALT (SGPT) 24 U/L (8-55); AST (SGOT) 30 U/L (5-34); Albumin 3.2 g/dL (3.4-4.8); Alkaline Phosphatase 82 U/L (40-110); Anion Gap 12 mmol/L (10-20); BUN (Urea Nitrogen) 29 mg/dL (8.4-25.7); Bilirubin, Total 0.8 mg/dL (0.2-1.2); Calc. Creatinine Clearance 0 mL/min (70-130); Calcium 9.1 mg/dL (7.8-10.44); Carbon Dioxide 35 mmol/L (23-31); Chloride 91 mmol/L (98-107); Globulin 2.8 g/dL (2.4-3.5); Glucose 160 mg/dL (83-110); Potassium 5.1 mmol/L (3.5-5.1); Sodium 133 mmol/L (136-145)
== END 2021-05-08 18:35 ==
LOC: ERS 14:25
DX: N39.0 Urinary tract infection, site not specified (principal); I25.10 Atherosclerotic heart disease of native coronary artery without angina pectoris; I11.0 Hypertensive heart disease with heart failure; I50.9 Heart failure, unspecified; E11.9 Type 2 diabetes mellitus without complications; K21.9 Gastro-esophageal reflux disease without esophagitis; I48.91 Unspecified atrial fibrillation; E78.5 Hyperlipidemia, unspecified; I25.2 Old myocardial infarction; Z79.899 Other long term (current) drug therapy; Z79.84 Long term (current) use of oral hypoglycemic drugs
CPT/HCPCS: 70450; 71045; 72125; 80053; 85025; 87077; 87086; 87186; U0003; U0005; 36415; 81003; 81015